=== PATIENT | male | born 1985 | race Caucasian/White ===

== ENCOUNTER 2016-08-21 03:22 | Inpatient (IN) | payer OTHER ==
[2016-08-21] MEDS ORDERED: ASPIRIN 81 MG CHEWABLE TABLETS PO ONE (03:45)
--- NOTE | 2016-08-21 03:45 | PDOC ---
History of Present Illness - General History Source: Patient Exam Limitations: No Limitations - History of Present Illness Initial Comments: 08/21/16 03:53 The patient is a 31 year old male with significant past medical history of hypertension, hyperlipidemia, myocarditis, and asthma who presents to the ED with 3 days of midsternal chest pain. Patient describes his pain as a stabbing sensation that radiates to the back with associated SOB. No exacerbating or alleviating factors. Denies diaphoresis, lightheadedness, jaw pain, shoulder pain, arm pain, nausea, or vomiting. Pt is currently on no medications. Denies any recent travels or sick contacts. The patient denies fever, chills, cough, abdominal pain, and diarrhea. Allergies: NKDA Social History: Denies alcohol, tobacco, or drug use. Family History: strokes and heart disease Past Surgical History: cardiac catheterization PCP: None reported <Federica Eckert - Last Filed: 08/21/16 06:23> - General History Source: Patient <Robi Sharp - Last Filed: 08/21/16 19:25> - General Stated Complaint: CHEST PAIN Time Seen by Provider: 08/21/16 03:41 Past History <Federica Eckert - Last Filed: 08/21/16 06:23> - Past Medical History Asthma: Yes Cardiac Disorders: Yes (Myocarditis) HTN: Yes Hypercholesterolemia: Yes - Surgical History Cardiac Surgery: Yes (Catheterization) - Immunization History Immunization Up to Date: No - Psycho/Social/Smoking Cessation Hx Anxiety: No Suicidal Ideation: No Smoking Status: No Smoking History: Never smoked Number of Cigarettes Smoked Daily: 0 Hx Alcohol Use: No Drug/Substance Use Hx: No <Robi Sharp - Last Filed: 08/21/16 19:25> - Past Medical History Allergies/Adverse Reactions: Allergies Allergy/AdvReac Type Severity Reaction Status Date / Time No Known Allergies Allergy Verified 05/12/12 12:07 Home Medications: Ambulatory Orders Albuterol Sulfate Inhaler - [Ventolin HFA Inhaler -] 1 puff IN PRN PRN 08/21/16 Review of Systems - Review of Systems Able to Perform ROS?: Yes Comments:: 08/21/16 03:53 CONSTITUTIONAL: Absent: fever, no chills, no fatigue EYES: Absent: visual changes ENT: Absent: ear pain, no sore throat CARDIOVASCULAR: +midsternal chest pain radiating to the back Absent: no palpitations RESPIRATORY: +SOB Absent: cough GI: Absent: abdominal pain, no nausea, no vomiting, no constipation, no diarrhea GENITOURINARY: Absent: dysuria, no frequency, no hematuria MUSKULOSKELETAL: Absent: no arthralgia, no myalgia SKIN: Absent: rash NEURO: Absent: headache <Federica Eckert - Last Filed: 08/21/16 06:23> *Physical Exam - Physical Exam Comments: 08/21/16 03:53 GENERAL: Well-appearing, well-nourished. Mild distress. HEENT: Normocephalic, atraumatic. PERRL, EOM intact. CARDIOVASCULAR: Normal S1, S2. Regular rate and rhythm. PULMONARY: No respiratory distress. Clear to auscultation bilaterally. ABDOMEN: Morbidly obese. Soft, non-distended, non-tender. EXTREMITIES: Normal ROM in all four extremities. No gross deformities. SKIN: Warm, dry. No rash NEUROLOGICAL: No focal neurological deficits. <Federica Eckert - Last Filed: 08/21/16 06:23> Heart Score/ECG Review - ECG Impressions Comment:: 08/21/16 03:54 NSR with sinus arrhythmia @98bpm Normal ECG <Federica Eckert - Last Filed: 08/21/16 06:23> - History History: Moderately suspicious - Electrocardiogram EKG: Normal - Age Age: </= 45 - Risk Factors Risk Factors Heart Score: Yes Hx Hypercholesterolemia, Yes Hx Hypertension, Yes Positive family hx of cardiac disease, Yes Hx Obesity Based on the list above the patient has:: 1-2 risk factors - Troponin Troponin: </= normal limit - Score Heart Score - Total: 2 <Robi Sharp - Last Filed: 08/21/16 19:25> ED Treatment Course - LABORATORY CBC & Chemistry Diagram: 08/21/16 04:20 08/21/16 04:20 - RADIOLOGY Radiograph Interpretation: 08/21/16 06:24 EXAM: CTA CHEST Reviewed by Imaging recreational programs director: No pulmonary embolism. No aortic dissection or aneurysm. No pneumonia or pleural effusions. Hepatosplenomegaly. Elevation right hemidiaphragm. 2.7 cm right adrenal adenoma. - Medications Given in the ED: ED Medications Discontinued Medications Generic Name Dose Route Start Last Admin Trade Name Frances PRN Reason Stop Dose Admin Aspirin 324 mg 08/21/16 03:45 08/21/16 03:50 Asa - PO 08/21/16 03:46 324 mg ONCE ONE Administration <Federica Eckert - Last Filed: 08/21/16 06:23> - LABORATORY CBC & Chemistry Diagram: 08/21/16 09:50 08/21/16 04:20 <Robi Sharp - Last Filed: 08/21/16 19:25> Medical Decision Making - Medical Decision Making 08/21/16 05:09 Dr. Sharp: The scribe's documentation has been prepared under my direction and personally reviewed by me in its entirery. I confirm that the note above accurately reflects all work, treatment, procedures, and medical decision making performed by me. Pt with slightly elevated troponin. H/o myocarditis. Pt will be admitted to telemetry 08/21/16 19:25 CTA of chest negeative for PE. <Robi Sharp - Last Filed: 08/21/16 19:25> *DC/Admit/Observation/Transfer - Attestations Scribe Attestion: 08/21/16 03:54 Documentation prepared by Federica Eckert, acting as medical transcriber for Robi Sharp MD <Federica Eckert - Last Filed: 08/21/16 06:23> - Discharge Dispostion Admit: Yes <Robi Sharp - Last Filed: 08/21/16 19:25> Diagnosis at time of Disposition: Chest pain Qualifiers: Chest pain type: precordial pain Qualified Code(s): R07.2 - Precordial pain Myocarditis Qualifiers: Myocarditis type: other Chronicity: unspecified Qualified Code(s): I51.4 - Myocarditis, unspecified - Referrals
[2016-08-21] MEDS ORDERED: ASPIRIN 81 MG CHEWABLE TABLETS ONE (03:52)
[2016-08-21 04:29] LABS: BASOPHIL 0.5 % (0-2.0); EOSINOPHIL 6.5 % (0-4.5); MCHC 32.8 g/dl (32.0-35.9); MEAN CELL VOLUME 76.3 fl (80-96); MEAN PLT VOLUME 9.2 fl (7.5-11.1); NEUTROPHILS 70.1 % (42.8-82.8); PLATELET COUNT 244 K/MM3 (134-434); RDW 14.3 % (11.9-15.9); WHITE BLOOD COUNT 12.4 K/mm3 (4.0-10.0)
[2016-08-21 04:55] LABS: ALBUMIN 3.6 g/dl (3.4-5.0); ANION GAP 9 (8-16); BILIRUBIN,TOTAL 0.4 mg/dL (0.2-1.0); CALCIUM 8.3 mg/dL (8.5-10.1); CO2 27 mmol/L (21-32); CREATININE 0.8 mg/dL (0.7-1.3); GLUCOSE,RANDOM 94 mg/dL (74-106); MAGNESIUM 1.9 mg/dL (1.8-2.4); SGOT/AST 26 U/L (15-37); SGPT/ALT 35 U/L (12-78); TOT PROT 7.3 g/dl (6.4-8.2)
[2016-08-21 04:58] LABS: ALK PHOS 62 U/L (45-117); TROPONIN I 0.15 ng/ml (0.00-0.05)
[2016-08-21] MEDS ORDERED: morphine CARPU-JECT 2 MG/1 ML DISP.SYRIN IVPUSH ONE (05:06)
[2016-08-21] MEDS ORDERED: ONDANSETRON 4 MG/2 ML VIAL IVPUSH STA (05:06)
--- NOTE | 2016-08-21 05:13 | HP ---
CHIEF COMPLAINT:Chest Pain PCP: HISTORY OF PRESENT ILLNESS:31 M with pmhx of HTN, HLD, and myocarditis who presents with midsternal Chest pain radiating to his back. Also, with associated shortness of breath. States Chest pain started yesterday and was intermittent in nature. It would last a few minutes and dissapate. Described as "stabbing," with radiation to the back. No N/V/D. No fevers or chills. Does states chest pain was worsened with deep inspiration. Pt. had chest pain in 2010, for which he underwent a cardiac catheterization, which was negative. He was diagnosed with Myocarditis at that time and notes his symptoms are different as far as pain is concerned this time. ER course was notable for: (1) Mildly elevated Troponin 0.15- Lovenox, ASA given (2) No acute EKG changes Recent Travel:No PAST MEDICAL HISTORY: As above PAST SURGICAL HISTORY: Cath-2010 Social History: Smoking:No Alcohol:No Drugs:NO Family History: Father- CVA- Age 50, AVReplacement Allergies No Known Allergies Allergy (Verified 05/12/12 12:07) HOME MEDICATIONS: Home Medications Medication Instructions Recorded Albuterol Sulfate Inhaler - 1 puff IN PRN PRN 08/21/16 [Ventolin HFA Inhaler -] REVIEW OF SYSTEMS CONSTITUTIONAL: Absent: fever, chills, diaphoresis, generalized weakness, malaise, loss of appetite, weight change HEENT: Absent: rhinorrhea, nasal congestion, throat pain, throat swelling, difficulty swallowing, mouth swelling, ear pain, eye pain, visual changes CARDIOVASCULAR: + chest pain, syncope, NO palpitations, irregular heart rate, lightheadedness, peripheral edema RESPIRATORY: Absent: cough, + shortness of breath, NO dyspnea with exertion, orthopnea, wheezing, stridor, hemoptysis GASTROINTESTINAL: Absent: abdominal pain, abdominal distension, nausea, vomiting, diarrhea, constipation, melena, hematochezia GENITOURINARY: Absent: dysuria, frequency, urgency, hesitancy, hematuria, flank pain, genital pain MUSCULOSKELETAL: Absent: myalgia, arthralgia, joint swelling, back pain, neck pain SKIN: Absent: rash, itching, pallor HEMATOLOGIC/IMMUNOLOGIC: Absent: easy bleeding, easy bruising, lymphadenopathy, frequent infections ENDOCRINE: Absent: unexplained weight gain, unexplained weight loss, heat intolerance, cold intolerance NEUROLOGIC: Absent: headache, focal weakness or paresthesias, dizziness, unsteady gait, seizure, mental status changes, bladder or bowel incontinence PSYCHIATRIC: Absent: anxiety, depression, suicidal or homicidal ideation, hallucinations. PHYSICAL EXAMINATION Vital Signs - 24 hr 08/21/16 04:00 Pulse Rate [ 104 H Apical] Respiratory 13 Rate Blood Pressure 129/91 [Left Arm] O2 Sat by Pulse 98 Oximetry (%) GENERAL: Awake, alert, and fully oriented, in no acute distress. HEAD: Normal with no signs of trauma. EYES: Pupils equal, round and reactive to light, extraocular movements intact, sclera anicteric, conjunctiva clear. No lid lag. EARS, NOSE, THROAT: Ears normal, nares patent, oropharynx clear without exudates. Moist mucous membranes. NECK: Normal range of motion, supple without lymphadenopathy, JVD, or masses. LUNGS: Breath sounds equal, clear to auscultation bilaterally. No wheezes, and no crackles. No accessory muscle use. HEART: Regular rate and rhythm, normal S1 and S2 without murmur, rub or gallop. ABDOMEN: Soft, nontender, not distended, normoactive bowel sounds, no guarding, no rebound, no masses. No hepatomegaly or splenomegaly. MUSCULOSKELETAL: Normal range of motion at all joints. No bony deformities or tenderness. No CVA tenderness. UPPER EXTREMITIES: 2+ pulses, warm, well-perfused. No cyanosis. No clubbing. No peripheral edema. LOWER EXTREMITIES: 2+ pulses, warm, well-perfused. No calf tenderness. No peripheral edema. NEUROLOGICAL: Cranial nerves II-XII intact. Normal speech. Gait, not assessed. PSYCHIATRIC: Cooperative. Good eye contact. Appropriate mood and affect. SKIN: Warm, dry, normal turgor, no rashes or lesions noted, normal capillary refill. Laboratory Results - last 24 hr 08/21/16 08/21/16 08/21/16 04:20 04:20 04:20 WBC 12.4 H RBC 5.87 H Hgb 14.7 Hct 44.8 MCV 76.3 L MCHC 32.8 RDW 14.3 Plt Count 244 D MPV 9.2 Neutrophils % 70.1 Lymphocytes % 13.3 D Monocytes % 9.6 Eosinophils % 6.5 H D Basophils % 0.5 Sodium 141 Potassium 4.2 Chloride 105 Carbon Dioxide 27 Anion Gap 9 BUN 12 Creatinine 0.8 Creat Clearance w eGFR > 60 Random Glucose 94 Calcium 8.3 L Magnesium 1.9 Total Bilirubin 0.4 AST 26 ALT 35 D Alkaline Phosphatase 62 Creatine Kinase 389 H D CK-MB (CK-2) Rel Index Cancelled Troponin I 0.15 H D Total Protein 7.3 Albumin 3.6 EKG- NSR- No acute ST-T changes CXR- Pending HEART SCORE 3 ASSESSMENT/PLAN: 31 M with pmhx of HTN, HLD, Myocarditis who presents with chest pain 1.) Chest Pain - DDx: Myocarditis, less likely NSTEMI - HEART 3 (Hx + 2 RF) - Echo - CTA- Pending - Trend Trop/EKG - Lovenox 1mg/kg- given in ED, await next trop, if decreased can stop - ASA - Consider BB - Morphine/Nitro prn CP 2.) HTN - Controlled not on home meds 3.) HLD - Not on any meds - Chk. Lipid Panel - Diet controlled 4.) Dvt Ppx - Scds Place in OBS Tele Visit type - Emergency Visit Emergency Visit: Yes ED Registration Date: 08/21/16 Care time: The patient presented to the Emergency Department on the above date and was hospitalized for further evaluation of their emergent condition. - New Patient This patient is new to me today: Yes Date on this admission: 08/22/16 - Critical Care Critical Care patient: No
[2016-08-21] MEDS ORDERED: ONDANSETRON 4 MG/2 ML VIAL ONE (05:15)
[2016-08-21] MEDS ORDERED: morphine CARPU-JECT 4 MG/1 ML DISP.SYRIN ONE (05:15)
[2016-08-21] MEDS ORDERED: morphine CARPU-JECT 2 MG/1 ML DISP.SYRIN ONE (05:15)
[2016-08-21 05:16] LABS: INR 1.19 (0.82-1.09); PROTHROMBIN TIME (PATIENT) 13.1 SEC (9.98-11.88)
[2016-08-21] MEDS ORDERED: ENOXAPARIN NA (PORCINE) 120 MG/0.8 ML DISP.SYRIN SQ SCH (05:30)
[2016-08-21 05:32] VITALS: BMI 38.7
[2016-08-21] MEDS ORDERED: ENOXAPARIN NA (PORCINE) 100 MG/1 ML DISP.SYRIN SQ ONE (05:45)
[2016-08-21] MEDS ORDERED: ALBUTEROL SO4 6.7 GM HFA INHALER IH PRN (05:47)
[2016-08-21] MEDS ORDERED: ENOXAPARIN NA (PORCINE) 30 MG/0.3 ML DISP.SYRIN SQ ONE (06:15)
[2016-08-21] MEDS ORDERED: METOPROLOL TARTRATE 25 MG TABLET (FP) PO ONE (06:42)
[2016-08-21] MEDS ORDERED: METOPROLOL TARTRATE 25 MG TABLET (FP) ONE (06:56)
[2016-08-21 08:49] LABS: CHOLESTEROL 148 mg/dL (50-200); LDL CHOLESTEROL (ONLY SJRH) 103 mg/dL (5-100)
[2016-08-21 10:23] LABS: BASOPHIL 0.3 % (0-2.0); MCH 24.7 pg (25.7-33.7); MCHC 32.4 g/dl (32.0-35.9); MEAN CELL VOLUME 76.2 fl (80-96); MEAN PLT VOLUME 9.7 fl (7.5-11.1); NEUTROPHILS 77.5 % (42.8-82.8); PLATELET COUNT 244 K/MM3 (134-434); RDW 14.3 % (11.9-15.9); WHITE BLOOD COUNT 12.1 K/mm3 (4.0-10.0)
[2016-08-21] MEDS ORDERED: NITROGLYCERIN SUBLINGUAL 1/150 0.4 MG TAB SL PRN (10:49)
--- NOTE | 2016-08-21 11:52 | EKG ---
Test Reason : Blood Pressure : / mmHG Vent. Rate : 098 BPM Atrial Rate : 098 BPM P-R Int : 142 ms QRS Dur : 086 ms QT Int : 342 ms P-R-T Axes : 047 020 050 degrees QTc Int : 436 ms NORMAL SINUS RHYTHM WITH SINUS ARRHYTHMIA NORMAL ECG WHEN COMPARED WITH ECG OF 01-AUG-2011 16:33, NO SIGNIFICANT CHANGE WAS FOUND Confirmed by RUSTY TABOR MD ([id number]) on 08/21/2016 11:52:14 AM Referred By: Confirmed By:RUSTY TABOR MD
[2016-08-21] MEDS: morphine CARPU-JECT 2 MG/1 ML DISP.SYRIN IVPUSH PRN ×3 (14:21→22:05)
--- NOTE | 2016-08-21 14:48 | PN ---
Teaching Attending Note Name of Resident: Smiht Lester ATTENDING PHYSICIAN STATEMENT I saw and evaluated the patient. I reviewed the resident's note and discussed the case with the resident. I agree with the resident's findings and plan as documented. SUBJECTIVE:c/o stabbing CP that woke him up from sleep yesterday L sided that "pierces right through me" with some radiation to the chin. lasted several minutes and then self resolved. has had 4 episodes of this last one 20 minutes earlier that presented in same quality as earlier. self resolved after 5 minutes priot to NTG that was given. pain comes on at rest and is worse on inspiration and leaning forward. pt states he was shoveling snow last week but did not experience any chest pain or SOB during. no recent URI symptoms no recent travel. denies tobacco or excessive ETOH use. family hx only significant for CVA. denies blurred vision, fever, chills, cough OBJECTIVE: Last Vital Signs Temp Pulse Resp BP Pulse Ox 99.1 F 94 H 17 100/61 96 08/21/16 07:35 08/21/16 11:46 08/21/16 11:46 08/21/16 11:46 08/21/16 11:46 General NAD CV S1 S2 RRR no murmur/rub/gallop distant heart sounds no chest wall tenderness lungs CTA B/L no wheezing/rales/rhonchi abdomen soft NT/ND no rebound/guarding obese ASSESSMENT AND PLAN: 31yo M with PMH morbid obesity, HTN, dyslipidemia and myocarditis presented to the ER and was admitted for further evaluation of their emergent condition 1. Pleuritic CP- no events on tele monitor. EKG with no changes. spoke with Dr Treviño's PA(private sports umpire [phone]). troponin at 0.15 x2 readings. awaiting 3rd troponin. Echo done with no WMA. received lovenox, morphine and beta nikolas. given presentation seems more pleuritic and believe it can less likely be ACS related. also given stress of snow shoveling last week which results in no CP or SOB. cardiac cath in 2010 showed 30% LAD and echo with EF 25 % which repeat echo in feb 2015 with normalized EF. will hold acs treatment at this time and continue to trend tropinin and if CP re-occurs. cardiac monitoring to monitor for arrhythmia. check lipase to r/o pancreatitis 2. HTN- not on home medications. currently controlled. will monitor for now 3. Morbid obesity- lifestyle modifications. bariatric referral as outpatient 4. DVT ppx- EAM
--- NOTE | 2016-08-21 14:48 | EKG ---
Test Reason : Blood Pressure : / mmHG Vent. Rate : 090 BPM Atrial Rate : 090 BPM P-R Int : 138 ms QRS Dur : 082 ms QT Int : 334 ms P-R-T Axes : 050 007 037 degrees QTc Int : 408 ms NORMAL SINUS RHYTHM NORMAL ECG WHEN COMPARED WITH ECG OF 21-AUG-2016 03:30, NO SIGNIFICANT CHANGE WAS FOUND Confirmed by RUSTY TABOR MD ([id number]) on 08/21/2016 2:47:59 PM Referred By: Confirmed By:RUSTY TABOR MD
--- NOTE | 2016-08-21 15:55 | PN ---
Addendum entered and electronically signed by Smith Lester RES 08/21/16 18: 47: low grade fever 100.4 no source of infection, negative CXR, negative CTA chest No cough, no hemoptysis, no rinnohrea no hematuria, dysuria no n/v, no diarrhea, no abdominal pain Plan PRN Tylenol If fever > 101, will do sepsis work up Original Note: Physical Exam: SUBJECTIVE: Patient seen and examined Pt is awake, alert and oriented Pt has another episode of chest pain with shortness of breath this morning The chest was sharp radiating to the back, chest pain increase with deep breath , no change with position No fever, no chills no recent infection, no cough no dyspnea on exertion, no orthopnea OBJECTIVE: Vital Signs Period Temp Pulse Resp BP Sys/Walker Pulse Ox Last 24 Hr 98.5 F-99.1 F 86-104 13-17 100-146/61-97 96-98 GENERAL: The patient is awake, alert, and fully oriented, in no acute distress. HEAD: Normal with no signs of trauma. ENT: Ears normal, nares patent, oropharynx clear without exudates, moist mucous membranes. NECK: Trachea midline, full range of motion, supple. LUNGS: Breath sounds equal, clear to auscultation bilaterally, no wheezes, no crackles, no accessory muscle use. HEART: Regular rate and rhythm, S1, S2 without murmur, rub or gallop. ABDOMEN: Soft, obese, nontender, nondistended, normoactive bowel sounds, no guarding, no rebound, no hepatosplenomegaly, no masses. EXTREMITIES: 2+ pulses, warm, well-perfused, no edema. NEUROLOGICAL: Normal speech, gait not observed. PSYCH: Normal mood, normal affect. SKIN: Warm, dry, normal turgor, no rashes or lesions noted Laboratory Results - last 24 hr 08/21/16 08/21/16 08/21/16 06:40 09:50 09:50 WBC 12.1 H RBC 5.99 H Hgb 14.8 Hct 45.7 MCV 76.2 L MCHC 32.4 RDW 14.3 Plt Count 244 MPV 9.7 Neutrophils % 77.5 Lymphocytes % 10.7 Monocytes % 6.5 Eosinophils % 5.0 H Basophils % 0.3 PTT (Actin FS) 31.7 Troponin I 0.15 H Active Medications Generic Name Dose Route Start Last Admin Trade Name Frances PRN Reason Stop Dose Admin Albuterol Sulfate 1 puff 08/21/16 05:47 Ventolin Hfa Inhaler - IH Q4H PRN SHORTNESS OF BREATH Morphine Sulfate 2 mg 08/21/16 10:49 08/21/16 14:21 Morphine Injection - IVPUSH 2 mg Q3H PRN Administration PAIN Nitroglycerin 0.4 mg 08/21/16 10:49 08/21/16 11:11 Nitrostat - SL 0.4 mg Q5M PRN Administration FOR CHEST PAIN CBC, BMP 08/21/16 09:50 08/21/16 04:20 Laboratory Tests 08/21/16 08/21/16 08/21/16 04:20 04:20 09:50 INR 1.19 H Troponin I 0.15 H D 0.15 H Total LDL Cholesterol 103 H HDL Cholesterol 32 L Lipase 08/21/16 08/21/16 15:30 16:00 INR Troponin I Pending Total LDL Cholesterol HDL Cholesterol Lipase Pending ASSESSMENT/PLAN: 31 year old male with pmh of HTN, HPLD, Obesity, Myocarditis with cardiac cath in 2010 presents with chest pain. Chest Pain likely myocarditis r/o ACS Pt describes pain as pleuretic, increase with deep breath, sharp Pt showed snow for 2 days in recent snow storm without chest pain/sob Continue to trend troponins so far, 0.15 x2 Serial ekg, so far SR with no ST/Twaves abnormalities, no block Echo showed normal EF, no wall motion abnormalities Monitor on telemetry for chest pain, sob, ekg abnormalities Monitor vitals received ASA, lovenox, betablocker in emergency department Consider resume ASA, Lovenox and betablocker if increasing with troponins Nitro Prn Morphine SL prn Avoid NSAIDS, Alcohol, Exercise Will need outpatient cardiology follow up with Dr Treviño Class 2 Obesity Pt with BMI 39 Weight loss counseling nutrition consult HTN controlled on off meds right now HPLD Lipid Profile with LDL 103 and HDL 32 Will need to exercise when recover from current condition with the ok from the record librarian Consider starting statins FEN Fluid: none Electrolytes: no abnormalities Nutrition: cardiac diet DVT prophylaxis: early ambulation, received Lovenox SQ in ED Disposition: keep in telemetry to trend troponins and watch for arrythmias Visit type - Emergency Visit Emergency Visit: Yes ED Registration Date: 08/21/16 Care time: The patient presented to the Emergency Department on the above date and was hospitalized for further evaluation of their emergent condition. - New Patient This patient is new to me today: Yes Date on this admission: 08/21/16 - Critical Care Critical Care patient: No - Discharge Referral Referred to [facility] Med P.C.: No
[2016-08-21 17:43] LABS: TROPONIN I 0.15 ng/ml (0.00-0.05)
[2016-08-21 22:35] LABS: TROPONIN I 0.17 ng/ml (0.00-0.05)
[2016-08-22] MEDS: morphine CARPU-JECT 2 MG/1 ML DISP.SYRIN IVPUSH PRN ×2 (02:00→07:01)
[2016-08-22 07:37] LABS: INR 1.42 (0.82-1.09); PROTHROMBIN TIME (PATIENT) 15.7 SEC (9.98-11.88)
--- NOTE | 2016-08-22 08:32 | PN ---
Physical Exam: SUBJECTIVE: Patient seen and examined complaint of feeling hot t max 100.7 overnigth no fever this 2 episode of chest pain overnight on the monitor had episode of Sinus tachycardia HR in 120's no cough, no rhinorhea no dysuria, hematuria no diarrhea, no abdominal pain, no n/v OBJECTIVE: Vital Signs Period Temp Pulse Resp BP Sys/Walker Pulse Ox Last 24 Hr 98.0 F-100.7 F 94-131 17-20 100-139/61-75 96-97 GENERAL: The patient is awake, alert, and fully oriented, in no acute distress. ENT: Ears normal, nares patent, oropharynx clear without exudates, moist mucous membranes. NECK: Trachea midline, full range of motion, supple. LUNGS: Breath sounds equal, clear to auscultation bilaterally, no wheezes, no crackles, no accessory muscle use. HEART: Regular rate and rhythm, S1, S2 without murmur, rub or gallop. ABDOMEN: Soft, nontender, nondistended, normoactive bowel sounds, no guarding, no rebound, no hepatosplenomegaly, no masses. EXTREMITIES: 2+ pulses, warm, well-perfused, no edema. NEUROLOGICAL: Normal speech, gait not observed. PSYCH: Normal mood, normal affect. SKIN: Warm, dry, normal turgor, no rashes or lesions noted Laboratory Results - last 24 hr 08/21/16 08/21/16 08/21/16 09:50 09:50 15:30 WBC 12.1 H RBC 5.99 H Hgb 14.8 Hct 45.7 MCV 76.2 L MCHC 32.4 RDW 14.3 Plt Count 244 MPV 9.7 Neutrophils % 77.5 Lymphocytes % 10.7 Monocytes % 6.5 Eosinophils % 5.0 H Basophils % 0.3 INR Creatine Kinase 208 D CK-MB (CK-2) Rel Index Troponin I 0.15 H 0.15 H Lipase 08/21/16 08/21/16 08/21/16 15:30 16:00 16:00 WBC RBC Hgb Hct MCV MCHC RDW Plt Count MPV Neutrophils % Lymphocytes % Monocytes % Eosinophils % Basophils % INR Creatine Kinase CK-MB (CK-2) Rel Index Cancelled Troponin I Cancelled Lipase 129 08/21/16 08/21/16 08/22/16 21:30 21:30 05:35 WBC RBC Hgb Hct MCV MCHC RDW Plt Count MPV Neutrophils % Lymphocytes % Monocytes % Eosinophils % Basophils % INR 1.42 H Creatine Kinase 199 CK-MB (CK-2) Rel Index Cancelled Troponin I 0.17 H Lipase Active Medications Generic Name Dose Route Start Last Admin Trade Name Freq PRN Reason Stop Dose Admin Acetaminophen 1,000 mg 08/21/16 18:41 Tylenol - PO Q6H PRN FEVER OR PAIN Albuterol Sulfate 1 puff 08/21/16 05:47 Ventolin Hfa Inhaler - IH Q4H PRN SHORTNESS OF BREATH Morphine Sulfate 2 mg 08/21/16 10:49 08/22/16 07:01 Morphine Injection - IVPUSH 2 mg Q3H PRN Administration PAIN Nitroglycerin 0.4 mg 08/21/16 10:49 08/21/16 11:11 Nitrostat - SL 0.4 mg Q5M PRN Administration FOR CHEST PAIN CBC, BMP 08/22/16 06:05 08/21/16 04:20 Microbiology 08/22/16 10:25 Nasopharyngeal Aspirate Influenza Types A,B Antigen (BRYAN) - Final 08/22/16 10:25 Nasopharyngeal Aspirate - Final Laboratory Tests 08/21/16 08/21/16 08/21/16 09:50 15:30 16:00 INR Troponin I 0.15 H 0.15 H Lipase 129 08/21/16 08/22/16 08/22/16 21:30 05:35 06:05 INR 1.42 H Troponin I 0.17 H 0.22 H D Lipase ASSESSMENT/PLAN: 31 year old male with pmh of HTN, HPLD, Obesity, Myocarditis with cardiac cath in 2010 presents with chest pain. Chest Pain likely myocarditis unlikely ACS, pericarditis Pt describes pain as pleuretic, increase with deep breath, sharp, worse when laying flat Pt showed snow for 2 days in recent snow storm without chest pain/sob Continue to trend troponins so far, 0.15 x3, 0.17, 0.22 Serial ekg, so far SR with no ST/Twaves abnormalities, no block Echo showed normal EF, no wall motion abnormalities Monitor on telemetry for chest pain, sob, ekg abnormalities Monitor vitals received ASA, lovenox, betablocker in emergency department Consider resume ASA, Lovenox and betablocker if increasing with troponins Nitro Prn Morphine SL prn Consult cardiology Dr Luna Per cardio: it is ok give NSAIDS since he is not in CHF and Severe Arrhythmia Pt is started on Ibuprofen and Colchicine By cardiology Avoid Alcohol, Exercise Will need outpatient cardiology follow up with Dr Treviño Low grade Fever r/o Sepsis Low grade fever since yesterday No cough, no sputum, no rinnorhea, no diarrhea, no abdominal pain, no hematuria , no dysuria Blood culture urine culture Influenza Class 2 Obesity Pt with BMI 39 Weight loss counseling nutrition consult HTN controlled on off meds right now Will continue to monitor HPLD Lipid Profile with LDL 103 and HDL 32 Will need to exercise when recover from current condition with the ok from the sprinkler fitter helper Consider starting statins FEN Fluid: none Electrolytes: no abnormalities Nutrition: cardiac diet DVT prophylaxis: early ambulation, received Lovenox SQ in ED Disposition: keep in telemetry to trend troponins and watch for arrythmias Visit type - Emergency Visit Emergency Visit: Yes ED Registration Date: 08/21/16 Care time: The patient presented to the Emergency Department on the above date and was hospitalized for further evaluation of their emergent condition. - New Patient This patient is new to me today: No - Critical Care Critical Care patient: No - Discharge Referral Referred to [facility] Med P.C.: No
--- NOTE | 2016-08-22 09:58 | PN ---
Progress Note (short form) - Note Progress Note: Consult Dictated Fever and symptoms c/w pericarditis vs pleuritis Normal LV function REC: NSAIDS Blood cultures and Influenza swab Consider ID evaluation Continue tele as patient with h/o of myocarditis 2010. Suspect mildly elevated TnI due to infection and some component of pericardial and possibly myocardial inflammatory process.
[2016-08-22] MEDS ORDERED: ASPIRIN 325 MG TABLET PO SCH (10:00)
[2016-08-22 10:06] LABS: MCH 24.8 pg (25.7-33.7); MCHC 32.1 g/dl (32.0-35.9); MEAN CELL VOLUME 77.4 fl (80-96); MEAN PLT VOLUME 9.5 fl (7.5-11.1); PLATELET COUNT 223 K/MM3 (134-434); RDW 14.1 % (11.9-15.9); WHITE BLOOD COUNT 11.3 K/mm3 (4.0-10.0)
[2016-08-22] MEDS: ACETAMINOPHEN 500 MG TABLET (FP) PO PRN ×2 (10:07→17:23)
[2016-08-22 10:11] LABS: TROPONIN I 0.22 ng/ml (0.00-0.05)
[2016-08-22] MEDS: COLCHICINE 0.6 MG TABLET (FP) PO SCH (10:14)
[2016-08-22] MEDS: PANTOPRAZOLE 20 MG TABLET (FP) PO SCH (10:14)
[2016-08-22] MEDS: IBUPROFEN 400 MG TABLET (FP) PO PRN ×3 (11:00→23:47)
--- NOTE | 2016-08-22 11:14 | CONS ---
DATE OF CONSULTATION: 08/22/2016 CONSULTATION REQUESTED BY: Suzanne Carreon MD REASON FOR CONSULTATION: Chest pain. The patient is a 31-year-old male with previous history of asthma and myocarditis in 2010, at which time he was diagnosed with severe LV dysfunction. With medical therapy, his ejection fraction normalized. He is followed by Dr. Treviño at [facility], with his last appointment being 1 year ago. He was ultimately taken off of medications due to normalization of LVEF. On Saturday, he began experiencing episodes of sharp substernal chest pain radiating to the back. In total, he had 3 episodes between Saturday and Saturday, worse lying down, better when sitting up. He was found to be febrile here. He had a CT scan of the chest that was negative for dissection or pulmonary embolism. He was noted to have mildly elevated troponin levels below 0.5 but above 0, and he was admitted to telemetry. He denies airline travel. He denies prolonged periods of inactivity. He states that at 1-2 weeks ago he had a sore throat and some mild upper respiratory-type infections. He denies cough. He has been febrile the last 24 hours, with temperatures of around 100.7. PAST MEDICAL HISTORY: Asthma, myocarditis in 2010, history of cholecystectomy. ALLERGIES: None. MEDICATIONS: None. FAMILY HISTORY: He denies early CAD or sudden cardiac . SOCIAL HISTORY: No alcohol, tobacco, or illicit drugs. ELECTROCARDIOGRAM: Sinus tachycardia 104 beats per minute with mild ST elevation in I, II, III, aVF, V2-V6, less than 1 mm, with a suggestion of P-R depression in I, II, aVL. PHYSICAL EXAMINATION: Vital Signs: Temperature 99.7, pulse 101, blood pressure 115/75. O2 saturation 97 on room air. HEENT: Anicteric. Heart: S1, S2 regular. No murmurs. Chest: Clear. Abdomen: Soft, nontender. Extremities: No edema. ECHOCARDIOGRAM: Normal LV function with no pericardial effusion noted. Mild TR. His chest CTA showed no dissection, no pulmonary embolism. There were some possible atelectatic changes in the right lower lobe with a trace amount of pleural fluid there. LABORATORY: His white count is elevated at 12.1, hematocrit 45.7, platelets normal. Slight eosinophilia, 5%. INR 1.42. Sodium was 141. Potassium was 4.2. BUN was 12. Creatinine was 0.8. CK initially 389, now down to 199. Troponin 0.15, 0.15, 0.17. LFTs were basically normal. Albumin 3.6. Cholesterol 148. IMPRESSION: A 31-year-old male with previous history of myocarditis in 2010, now presents with sharp substernal chest pain, positional in nature, with low-grade fever and symptoms consistent with pericarditis. Suspect the slightly elevated cardiac troponin level is due to pericardial, possibly some myocardial inflammation. RECOMMENDATIONS: 1. Continue telemetry to rule out arrhythmias. 2. Echo has shown normal LV function with no significant effusion. 3. Begin NSAIDs, ibuprofen 400 mg q.6 hours p.r.n. for pain, with colchicine 0.6 mg daily. 4. Consider ID evaluation. 5. Blood cultures and influenza swabs. Thank you for the consultation. CRUZ SAVAGE M.D. [id number]
[2016-08-22 12:38] LABS: C-REACTIVE PROTEIN 13.1 MG/DL (0.00-0.3)
--- NOTE | 2016-08-22 12:43 | EKG ---
Test Reason : Blood Pressure : / mmHG Vent. Rate : 104 BPM Atrial Rate : 104 BPM P-R Int : 138 ms QRS Dur : 088 ms QT Int : 336 ms P-R-T Axes : 041 -04 043 degrees QTc Int : 441 ms SINUS TACHYCARDIA ACUTE PERICARDITIS ABNORMAL ECG WHEN COMPARED WITH ECG OF 21-AUG-2016 18:33, NO SIGNIFICANT CHANGE WAS FOUND Confirmed by ANNE YEE MD ([id number]) on 08/22/2016 12:43:04 PM Referred By: Lisa EAGLE Confirmed By:ANNE YEE MD
--- NOTE | 2016-08-22 12:43 | EKG ---
Test Reason : Blood Pressure : / mmHG Vent. Rate : 099 BPM Atrial Rate : 099 BPM P-R Int : 138 ms QRS Dur : 086 ms QT Int : 322 ms P-R-T Axes : 037 -01 040 degrees QTc Int : 413 ms NORMAL SINUS RHYTHM NORMAL ECG WHEN COMPARED WITH ECG OF 21-AUG-2016 12:10, NO SIGNIFICANT CHANGE WAS FOUND Confirmed by ANNE YEE MD ([id number]) on 08/22/2016 12:43:48 PM Referred By: DERIK Confirmed By:ANNE YEE MD
--- NOTE | 2016-08-22 13:35 | PN ---
Teaching Attending Note Name of Resident: Smith Lester ATTENDING PHYSICIAN STATEMENT I saw and evaluated the patient. I reviewed the resident's note and discussed the case with the resident. I agree with the resident's findings and plan as documented. SUBJECTIVE:continues to have intermittent CP, relieved with morphine. states its worse when laying down. denies SOB, fever, chills, N/V/C/D OBJECTIVE: Last Vital Signs Temp Pulse Resp BP Pulse Ox 100.8 F H 105 H 20 127/76 93 L 08/22/16 10:00 08/22/16 10:00 08/22/16 10:00 08/22/16 10:00 08/22/16 10:00 General NAD CV S1 S2 RRR no murmur/rub/gallop distant heart sounds no chest wall tenderness lungs CTA B/L no wheezing/rales/rhonchi ASSESSMENT AND PLAN: 31yo M with PMH morbid obesity, HTN, dyslipidemia and myocarditis presented to the ER and was admitted for further evaluation of their emergent condition 1. Pleuritic CP-likely myopericarditis. had intermittent low grade fevers through out the night. no events on monitoring engineer. will rodriguez culture at this time. cardio consulted and appreciate recommendations and approval of starting motrin and colchine at this time. PPI for GI protection. will monitor over the next 24H on the monitor due to high risk of arrhythmia and hx of heart failure during myocarditis in the past. pt will need to be monitored closely by cardiology for further evaluation and prevention of repeated episodes 2. HTN- not on home medications. currently controlled. will monitor for now 3. Morbid obesity-educated need for weight reduction. healthy eating habits during this time as exercise is to be avoided during acute myocarditis. but encouraged healthly living changes. 4. DVT ppx- EAM
[2016-08-22 18:12] LABS: TROPONIN I 0.33 ng/ml (0.00-0.05)
[2016-08-23 07:47] LABS: MCH 25.2 pg (25.7-33.7); MCHC 33.2 g/dl (32.0-35.9); MEAN CELL VOLUME 75.8 fl (80-96); MEAN PLT VOLUME 9.4 fl (7.5-11.1); PLATELET COUNT 238 K/MM3 (134-434); WHITE BLOOD COUNT 10.1 K/mm3 (4.0-10.0)
[2016-08-23] MEDS: IBUPROFEN 400 MG TABLET (FP) PO PRN (07:54)
[2016-08-23 08:42] LABS: TROPONIN I 0.39 ng/ml (0.00-0.05)
--- NOTE | 2016-08-23 09:22 | PN ---
Progress Note, Physician Chief Complaint: Feeling well No further chest pain. TELE: NSR with sinus tach. No sig ventricular ectopy. - Current Medication List Current Medications: Active Medications Acetaminophen (Tylenol -) 1,000 mg PO Q6H PRN PRN Reason: FEVER OR PAIN Last Admin: 08/22/16 17:23 Dose: 1,000 mg Albuterol Sulfate (Ventolin Hfa Inhaler -) 1 puff IH Q4H PRN PRN Reason: SHORTNESS OF BREATH Colchicine (Colcrys -) 0.6 mg PO DAILY [facility] Last Admin: 08/22/16 10:14 Dose: 0.6 mg Ibuprofen (Motrin -) 400 mg PO Q6H PRN PRN Reason: PAIN Last Admin: 08/23/16 07:54 Dose: 400 mg Pantoprazole Sodium (Protonix -) 20 mg PO DAILY [facility] Last Admin: 08/22/16 10:14 Dose: 20 mg - Objective Vital Signs: Vital Signs Temperature 97.9 F 08/23/16 06:00 Pulse Rate 81 08/23/16 06:00 Respiratory Rate 20 08/23/16 06:38 Blood Pressure 99/64 08/23/16 06:00 O2 Sat by Pulse Oximetry (%) 93 L 08/23/16 06:38 Constitutional: Yes: No Distress, Calm Eyes: Yes: Conjunctiva Clear Cardiovascular: Yes: Regular Rate and Rhythm Respiratory: Yes: CTA Bilaterally Gastrointestinal: Yes: Soft, Abdomen, Obese Edema: No Neurological: Yes: Alert, Oriented Labs: CBC, BMP 08/23/16 05:35 INR, PTT INR 1.42 (0.82-1.09) H 08/22/16 05:35 Laboratory Tests 08/22/16 08/22/16 08/23/16 06:05 17:10 05:35 WBC 10.1 H Hgb 14.6 Plt Count 238 Creatine Kinase 176 189 Troponin I 0.22 H D 0.33 H D 08/23/16 05:35 WBC Hgb Plt Count Creatine Kinase 149 Troponin I 0.39 H CRP 13 - ....Imaging EKG: Image Reviewed Assessment/Plan IMP: Fever and suspected perimyocarditis Normal LVEF REC: Symptoms improved with NSAIDS and colchicine. No V- arrhythmias noted, LVEF normal. Reluctant to perform stress MIBI in setting of acute perimyocarditis, but would like to assure perfusion is normal. Will discuss options for coronary CTA-- may need to transfer as we do not have this available in our facility.
[2016-08-23] MEDS: COLCHICINE 0.6 MG TABLET (FP) PO SCH (09:37)
[2016-08-23] MEDS: PANTOPRAZOLE 20 MG TABLET (FP) PO SCH (09:38)
[2016-08-23 13:45] VITALS: BP 131/78; PULSE 99; TEMP 98.7
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
--- NOTE | 2016-08-23 14:01 | PN ---
Teaching Attending Note Name of Resident: Smith Lester ATTENDING PHYSICIAN STATEMENT I saw and evaluated the patient. I reviewed the resident's note and discussed the case with the resident. I agree with the resident's findings and plan as documented. SUBJECTIVE:no recurrent CP since starting colchicine.denies CP, SOB,fever, chills, N/V/C/D OBJECTIVE: Last Vital Signs Temp Pulse Resp BP Pulse Ox 98.7 F 99 H 20 131/78 96 08/23/16 13:44 08/23/16 13:44 08/23/16 13:44 08/23/16 13:44 08/23/16 09:00 General NAD CV S1 S2 RRR no murmur/rub/gallop distant heart sounds no chest wall tenderness lungs CTA B/L no wheezing/rales/rhonchi ASSESSMENT AND PLAN: 31yo M with PMH morbid obesity, HTN, dyslipidemia and myocarditis presented to the ER and was admitted for further evaluation of their emergent condition 1. Pleuritic CP-likely myopericarditis. afebrile 24H. sinus tachycardia up to 120 on the monitor. no VT/VF. plan for cardiac CT for risk assessment. will be transfered to [facility] as we do not capability here. recommend avoidance of exercise till after CP resolves. Avoid drinking ETOH. continue colchicine for 3 months. encouraged close follow up with Cardiology once discharged from [place]. Cx negative
== END 2016-08-23 13:59 | disposition short-term general hospital (02) | DRG 207 ==
LOC: JER 03:22 → JERBED 05:08 → OBSVTOIN 05:37 → J4W 13:53
PROVIDERS: ADMIT Internal Medicine; ATTEND Internal Medicine
DX: I51.4 Myocarditis, unspecified (principal); I10 Essential (primary) hypertension; E78.5 Hyperlipidemia, unspecified; E66.01 Morbid (severe) obesity due to excess calories; Z68.38 Body mass index [BMI] 38.0-38.9, adult; R07.9 Chest pain, unspecified
CPT/HCPCS: 36415; 71010-TC; 71275-TC; 80053; 80061; 82550; 82553; 83690; 83721; 83735; 84484; 85025; 85027; 85610; 85730; 86140; 87040; 87086; 87254; 87804; 93005; 93010; 93306-TC; 99284-25; G0378

== ENCOUNTER 2017-10-13 18:54 | Inpatient (IN) | payer OTHER ==
--- NOTE | 2017-10-13 19:12 | PDOC ---
History of Present Illness - History of Present Illness Initial Comments: 10/13/17 19:55 Patient is 32 M, with PMHx of mild carditis, FMHx of stroke, who presents with speech difficulty since yesterday. Patient reports difficulty formulating words. He states that he has trouble with producing speech when he tries to speak. He describes it more as an aphasia rather than a dysarthria. Patient does not report difficulty with word finding. Denies h/o seizures, weakness, or visual changes. 10/13/17 21:50 <Lara Farfan - Last Filed: 10/13/17 21:50> <Jing Coelho - Last Filed: 10/13/17 23:50> - General Chief Complaint: CVA/TIA Stated Complaint: SLURR SPEECH Time Seen by Provider: 10/13/17 19:07 Past History <Lara Farfan - Last Filed: 10/13/17 21:50> - Past Medical History Asthma: Yes Cardiac Disorders: Yes (Myocarditis) COPD: No HTN: Yes Hypercholesterolemia: Yes - Surgical History Cardiac Surgery: Yes (Catheterization) - Immunization History Immunization Up to Date: No - Suicide/Smoking/Psychosocial Hx Smoking Status: No Smoking History: Never smoked Have you smoked in the past 12 months: No Number of Cigarettes Smoked Daily: 0 Hx Alcohol Use: No Drug/Substance Use Hx: No Substance Use Type: None Hx Substance Use Treatment: No <Jing Coelho - Last Filed: 10/13/17 23:50> - Past Medical History Allergies/Adverse Reactions: Allergies Allergy/AdvReac Type Severity Reaction Status Date / Time No Known Allergies Allergy Verified 10/13/17 18:59 Home Medications: Ambulatory Orders Albuterol Sulfate Inhaler - [Ventolin HFA Inhaler -] 1 puff IN PRN PRN 08/21/16 Carvedilol [Coreg -] 3.125 mg PO BID 10/13/17 Lisinopril [Prinivil] mg PO DAILY 10/13/17 Spironolactone [Aldactone] 25 mg PO DAILY 10/13/17 Review of Systems - Review of Systems Comments:: 10/13/17 19:58 CONSTITUTIONAL: Absent: fever, chills, diaphoresis, generalized weakness, malaise, loss of appetite HEENT: Absent: rhinorrhea, nasal congestion, throat pain, throat swelling, difficulty swallowing, mouth swelling, ear pain, eye pain, visual changes CARDIOVASCULAR: Absent: chest pain, syncope, palpitations, irregular heart rate, lightheadedness , peripheral edema RESPIRATORY: Absent: cough, shortness of breath, dyspnea with exertion, orthopnea, wheezing, stridor, hemoptysis GASTROINTESTINAL: Absent: abdominal pain, abdominal distension, nausea, vomiting, diarrhea, constipation, melena, hematochezia GENITOURINARY: Absent: dysuria, frequency, urgency, hesitancy, hematuria, flank pain, genital pain MUSCULOSKELETAL: Absent: myalgia, arthralgia, joint swelling SKIN: Absent: rash, itching, pallor HEMATOLOGIC/IMMUNOLOGIC: Absent: easy bleeding, easy bruising, lymphadenopathy, frequent infections ENDOCRINE: Absent: unexplained weight gain, unexplained weight loss, heat intolerance, cold intolerance NEUROLOGIC: Present: difficultly with speech production. Absent: headache, focal weakness or paresthesias, dizziness, unsteady gait, seizure, mental status changes, bladder or bowel incontinence PSYCHIATRIC: Absent: anxiety, depression, suicidal or homicidal ideation, hallucinations. <Lara Farfan - Last Filed: 10/13/17 21:50> *Physical Exam - Vital Signs Last Vital Signs Temp Pulse Resp BP Pulse Ox 99 F 79 19 135/92 100 10/13/17 18:59 10/13/17 18:59 10/13/17 18:59 10/13/17 18:59 10/13/17 18:59 - Physical Exam Comments: 10/13/17 19:59 GENERAL: Well developed, well nourished. Awake and alert. No acute distress. HEENT: Normocephalic, atraumatic. PERRLA, EOMI. No conjunctival pallor. Sclera are non- icteric. Moist mucous membranes. Oropharynx is clear. NECK: Supple. Full ROM. No JVD. Carotid pulses 2+ and symmetric, without bruits. No thyromegaly. No lymphadenopathy. CARDIOVASCULAR: Regular rate and rhythm. No murmurs, rubs, or gallops. Distal pulses are 2+ and symmetric. PULMONARY: No evidence of respiratory distress. Lungs clear to auscultation bilaterally. No wheezing, rales or rhonchi. ABDOMINAL: Soft. Non-tender. Non-distended. No rebound or guarding. No organomegaly. Normoactive bowel sounds. MUSCULOSKELETAL Normal range of motion at all joints. No bony deformities or tenderness. No CVA tenderness. EXTREMITIES: No cyanosis. No clubbing. No edema. No calf tenderness. SKIN: Warm and dry. Normal capillary refill. No rashes. No jaundice. NEUROLOGICAL: Alert, awake, appropriate. Cranial nerves 2-12 intact. No deficits to light touch and temperature in face, upper extremities and lower extremities. No motor deficits in the upper extremities and lower extremities. Normoreflexic in the upper and lower extremities. Toes are down-going bilaterally. Gait is normal without ataxia. PSYCHIATRIC: Cooperative. Good eye contact. Appropriate mood and affect. <Lara Farfan - Last Filed: 10/13/17 21:50> - Vital Signs Last Vital Signs Temp Pulse Resp BP Pulse Ox 99 F 79 19 135/92 100 10/13/17 18:59 10/13/17 18:59 10/13/17 18:59 10/13/17 18:59 10/13/17 18:59 <Jing Coelho - Last Filed: 10/13/17 23:50> NIH Stroke Scale - Last Known Well Date/Time & Onset Date Last Known Well: 10/12/17 Time Last Known Well: 20:00 - Initial Evaluation Level of consciousness: Alert Ask patient the month and their age: Answers both correctly Ask patient to open & close eyes; make fist and let go: Obeys both correctly Best gaze (horizontal eye movement): Normal Visual field testing: No visual field loss Facial paresis (Show teeth/raise eyebrows/close eyes tight): Normal symmetrical movement Motor Function: Left Arm: Normal Motor Function: Right Arm: Normal (extends arm 90 (or 45) degrees for 10 seconds without drift Motor Function: Left Leg: Normal (extends leg 30 degrees for 5 seconds without drift) Motor Function: Right Leg: Normal (extends leg 30 degrees for 5 seconds without drift) Limb Ataxia: No ataxia Sensory(Use pinprick test arms,legs,trunk,face/side to side): Normal Best language (Describe picture, name items, read sentences): Mild to moderate aphasia Dysarthria (read several words): Normal articulation Extinction and Inattention: No abnormality - Total Score NIH Stroke Scale Score: 1 <Jing Coelho - Last Filed: 10/13/17 23:50> tPA Exclusion checklist 3-4.5h - Time Elapsed Date last known well: 10/12/17 Time last known well: 20:00 Elaspsed time: 1 Day(s) and 3 Hour(s) and 49 Minutes - Thrombolytic Therapy Candidate Is patient eligible for thrombolytic therapy: No - Exclusion Criteria 3-4.5 hr SBP greater than 185 or DBP greater than 110mmHg despite tx: No Recent IC/spinal surgery,head trauma or stroke<3mos.: No Hx IC hemorrhage, IC neoplasm, AV malformation or aneurysm: No Active internal bleeding: No Blding diathesis(low plt ct, inc PTT,INR>1.7 or use of NOAC): No Symptoms suggest subarachnoid hemorrhage: No Arterial puncture at noncompressible site in previous 7 days: No Blood glucose concentration less than 50mg/dL (2.7mmol/L): No - Relative Exclusion Criteria 3-4.5 hr Life expectancy <1 yr or severe co-morbid illness: No : No Patient/family refused: No Rapid improvement: No Stroke severity too mild: Yes Recent acute AR (w/in previous 3 months): No Seizure at onset with postictal residual neuro impairments: No Major surgery or serious trauma w/in previous 14 days: No Recent GI or hemorrhage (w/in previous 21 days): No - Add'l Relative Exclusion 3-4.5 hr Age > 80: No Hx of both diabetes AND prior ischemic stroke: No Taking an oral anticoagulant regardless of INR: No NIHSS >25: No - Ineligibility reason(s) Reasons No tPA given: Outside of window - delayed arrival (PT'S ONLY SYMPTOM WAS MILD SLURRED SPEECH) <Jing Coelho - Last Filed: 10/13/17 23:50> Critical Care Time/[facility] Note - Medical Decision Making Note: 10/13/17 20:[address] Michel for neurology consult. 10/13/17 20:[address]: Impression: Focal low attenuation in the white matter of the LEFT centrum and extending partially into the area of the posterior limb of the external capsule and external capsular areas. This also partially involves the thalamus and adjacent basal ganglia. This measures up to 2.7 cm in greatest dimension. This is a nonspecific finding. The differential diagnosis includes ischemia and mass. Followup with MRI with enhancement should be obtained. No evidence of intracranial hemorrhage or mass. Reported By: Panchito Briceno MD 10/13/17 19:24 EST <Lara Farfan - Last Filed: 10/13/17 21:50> - Medical Decision Making Note: 10/13/17 21:36 DR Villar [phone] <Jing Coelho - Last Filed: 10/13/17 23:50> Discharge Disposition <Lara Farfan - Last Filed: 10/13/17 21:50> - Discharge Dispostion Decision to Admit order: Yes <Jing Coelho - Last Filed: 10/13/17 23:50> - Diagnosis Speech articulation disorder CVA (cerebral vascular accident) Qualifiers: CVA mechanism: unspecified Qualified Code(s): I63.9 - Cerebral infarction, unspecified
[2017-10-13] MEDS ORDERED: SODIUM CHLORIDE 1,000 ML IV SCH (19:15)
[2017-10-13 20:56] LABS: BASO % 0.6 % (0-2.0); EOS % 7.7 % (0-4.5); HEMATOCRIT 43.9 % (35.4-49); HEMOGLOBIN 14.9 GM/dL (11.7-16.9); LYMPH % 19.8 % (8-40); MCH 26.4 pg (25.7-33.7); MCHC 33.9 g/dl (32.0-35.9); MEAN CELL VOLUME 77.9 fl (80-96); MEAN PLT VOLUME 9.2 fl (7.5-11.1); MONO % 7.7 % (3.8-10.2); NEUT % 64.2 % (42.8-82.8); PLATELET COUNT 275 K/MM3 (134-434); RBC 5.63 M/mm3 (4.00-5.60); RDW 14.1 % (11.9-15.9); WHITE BLOOD COUNT 12.6 K/mm3 (4.0-10.0)
[2017-10-13 21:13] LABS: INR 1.11 (0.82-1.09); PROTHROMBIN TIME (PATIENT) 12.5 SEC (9.7-13.0)
[2017-10-13 21:25] LABS: ALBUMIN 4.1 g/dl (3.4-5.0); ANION GAP 9 (8-16); BILIRUBIN,TOTAL 0.3 mg/dL (0.2-1.0); BLOOD UREA NITROGEN 13 mg/dL (7-18); CALCIUM 8.6 mg/dL (8.5-10.1); CHLORIDE 103 mmol/L (98-107); CHOLESTEROL 181 mg/dL (50-200); CO2 27 mmol/L (21-32); GLUCOSE,RANDOM 105 mg/dL (74-106); HDL CHOLESTEROL 29 mg/dL (40-60); POTASSIUM 3.8 mmol/L (3.5-5.1); SGOT/AST 33 U/L (15-37); SGPT/ALT 46 U/L (12-78); SODIUM 139 mmol/L (136-145); TOT PROT 7.6 g/dl (6.4-8.2); TRIGLYCERIDES 307 mg/dL (35-160)
[2017-10-13 21:26] LABS: ALK PHOS 60 U/L (45-117)
--- NOTE | 2017-10-13 21:54 | PN ---
Teaching Attending Note Name of Resident: Kimberli Ray ATTENDING PHYSICIAN STATEMENT I saw and evaluated the patient. I reviewed the resident's note and discussed the case with the resident. I agree with the resident's findings and plan as documented. SUBJECTIVE: 32 M with pmhx. of HTN, HLD, and mycarditis, who presents with aphasia. States has had difficulty formulating words since yesterday. Notes he has trouble formulating speech. No headaches, or weakness, No visual changes. No chest pain , pressure or shortness of breath. States this started at 9 pm yesterday and has trouble articulating his words. Notes he understands all words, but has a "stutter" when he speaks. No chest pain or pressure. No N, V, D. No headaches, dizziness, lightheadedness, numbness or tingling. OBJECTIVE: Physical: VS: Vital Signs Period Temp Pulse Resp BP Sys/Walker Pulse Ox Last 24 Hr 99 F 79 19 135/92 100 GEN: NAD, Resting in bed, AA0X3 HEENT: NCAT, PERRL, Throat without erythema or exudates CARD: RRR S1, S2 RESP: CTAB ABD: BSx4, NTD to palpation EXT: - C/C/E NEURO: ? Mild L. Facial droop, MS +5/5 CN II- XII intact. CBCD WBC 12.6 K/mm3 (4.0-10.0) H 10/13/17 20:45 RBC 5.63 M/mm3 (4.00-5.60) H 10/13/17 20:45 Hgb 14.9 GM/dL (11.7-16.9) 10/13/17 20:45 Hct 43.9 % (35.4-49) 10/13/17 20:45 MCV 77.9 fl (80-96) L 10/13/17 20:45 MCHC 33.9 g/dl (32.0-35.9) 10/13/17 20:45 RDW 14.1 % (11.9-15.9) 10/13/17 20:45 Plt Count 275 K/MM3 (134-434) 10/13/17 20:45 MPV 9.2 fl (7.5-11.1) 10/13/17 20:45 CMP Sodium 139 mmol/L (136-145) 10/13/17 20:45 Potassium 3.8 mmol/L (3.5-5.1) 10/13/17 20:45 Chloride 103 mmol/L (98-107) 10/13/17 20:45 Carbon Dioxide 27 mmol/L (21-32) 10/13/17 20:45 Anion Gap 9 (8-16) 10/13/17 20:45 BUN 13 mg/dL (7-18) 10/13/17 20:45 Creatinine 1.0 mg/dL (0.7-1.3) D 10/13/17 20:45 Creat Clearance w eGFR > 60 (>60) 10/13/17 20:45 Random Glucose 105 mg/dL (74-106) 10/13/17 20:45 Calcium 8.6 mg/dL (8.5-10.1) 10/13/17 20:45 Total Bilirubin 0.3 mg/dL (0.2-1.0) D 10/13/17 20:45 AST 33 U/L (15-37) D 10/13/17 20:45 ALT 46 U/L (12-78) D 10/13/17 20:45 Alkaline Phosphatase 60 U/L (45-117) 10/13/17 20:45 Total Protein 7.6 g/dl (6.4-8.2) 10/13/17 20:45 Albumin 4.1 g/dl (3.4-5.0) 10/13/17 20:45 CARDIAC ENZYMES Creatine Kinase 445 IU/L (39-308) H 10/13/17 20:45 Troponin I < 0.02 ng/ml (0.00-0.05) D 10/13/17 20:45 Ambulatory Orders RX: Albuterol Sulfate Inhaler - [Ventolin HFA Inhaler -] 1 puff IN PRN PRN 08/21 Carvedilol [Coreg -] 3.125 mg PO BID 10/13/17 Lisinopril [Prinivil] mg PO DAILY 10/13/17 Spironolactone [Aldactone] 25 mg PO DAILY 10/13/[address]: Impression: Focal low attenuation in the white matter of the LEFT centrum and extending partially into the area of the posterior limb of the external capsule and external capsular areas. This also partially involves the thalamus and adjacent basal ganglia. This measures up to 2.7 cm in greatest dimension. This is a nonspecific finding. The differential diagnosis includes ischemia and mass. Followup with MRI with enhancement should be obtained. No evidence of intracranial hemorrhage or mass. ASSESSMENT AND PLAN: 32 M with pmhx. of HTN, HLD, and mycarditis,who presents with aphasia 1.) CVA/?MASS - MRI Brain w/wo con - Neuro consulted - Neurosx consult - Echo/Carotids - Lipid Panel/HgbA1c - Statin - Speech & Swallow consult - ? ASA, would hold if Mass, may need Bx 2.) HTN - C/W Cored, [place] 3.) HLD - Statin 4.) Obesity - RD consult 5.) Dvt ppx - Scds
--- NOTE | 2017-10-13 21:55 | HP ---
CHIEF COMPLAINT: slurred speech PCP: Dr. Estefanía Chacon Cardiology: Dr. Jay Luna HISTORY OF PRESENT ILLNESS: 32yo man with PMH of morbid obesity, HTN, HLD, myocarditis who presents with stuttered/slurred speech since last night. [place] [facility] [place] 9[place] last night, he developed difficulty with pronouncing words, which has never occurred before. He denies any problems with comprehension or word finding, and only has difficulty producing the words. His , who is at bedside, endorses no change in comprehension or unintelligible speech. Patient denies any prodromal symptoms including seizures, weakness, lightheadedness, dizziness, SEXTON, changes in vision/taste/smell. Denies any CP, chest tightness or discomfort. No sob, fever, chills, URI symtpoms, abdominal pain, or urinary symptoms. ER course was notable for: (1) Head CT with 2.7cm ? mass vs infarct; no e/o hemorrhage or surrounding edema (2) (3) Recent Travel: none PAST MEDICAL HISTORY: see HPI PAST SURGICAL HISTORY: Cardiac Catheterization - 2010 [facility] - 2011 Social History: time broker student; Unlimited exercise tolerance Smoking: never Alcohol: none Drugs: none Family History: Dad - Ao valve replacement; 2 x Strokes Allergies: NKDA Home Medications Medication Instructions Recorded Albuterol Sulfate Inhaler - 1 puff IN PRN PRN 08/21/16 [Ventolin HFA Inhaler -] Carvedilol [Coreg -] 3.125 mg PO BID 10/13/17 Lisinopril [Prinivil] 2.5 mg PO DAILY 10/13/17 Spironolactone [Aldactone] 25 mg PO DAILY 10/13/17 REVIEW OF SYSTEMS CONSTITUTIONAL: Absent: fever, chills, diaphoresis, generalized weakness, malaise, loss of appetite, weight change HEENT: Absent: rhinorrhea, nasal congestion, throat pain, throat swelling, difficulty swallowing, mouth swelling, ear pain, eye pain, visual changes CARDIOVASCULAR: Absent: chest pain, syncope, palpitations, irregular heart rate, lightheadedness , peripheral edema RESPIRATORY: Absent: cough, shortness of breath, dyspnea with exertion, orthopnea, wheezing, stridor, hemoptysis GASTROINTESTINAL: Absent: abdominal pain, abdominal distension, nausea, vomiting, diarrhea, constipation, melena, hematochezia GENITOURINARY: Absent: dysuria, frequency, urgency, hesitancy, hematuria, flank pain, genital pain MUSCULOSKELETAL: Absent: myalgia, arthralgia, joint swelling, back pain, neck pain SKIN: Absent: rash, itching, pallor HEMATOLOGIC/IMMUNOLOGIC: Absent: easy bleeding, easy bruising, lymphadenopathy, frequent infections ENDOCRINE: Absent: unexplained weight gain, unexplained weight loss, heat intolerance, cold intolerance NEUROLOGIC: Absent: headache, focal weakness or paresthesias, dizziness, unsteady gait, seizure, mental status changes, bladder or bowel incontinence PSYCHIATRIC: Absent: anxiety, depression, suicidal or homicidal ideation, hallucinations. PHYSICAL EXAMINATION Vital Signs - 24 hr 10/13/17 18:59 Temperature 99 F Pulse Rate 79 Respiratory 19 Rate Blood Pressure 135/92 O2 Sat by Pulse 100 Oximetry (%) GENERAL: Awake, alert, and fully oriented, in no acute distress. HEAD: Normal with no signs of trauma. EYES: PERRLA, EOMI, sclera anicteric, conjunctiva clear EARS, NOSE, THROAT: Oropharynx clear without exudates. Moist mucous membranes. NECK: supple, no cervical LAD LUNGS: CTAB HEART: rrr, normal s1/s2, no m/r/g ABDOMEN: soft, obese, NTND UPPER EXTREMITIES: 2+ radial pulses, wwp, no edema LOWER EXTREMITIES: 2+ DP pulses, warm, wwp, no calf tenderness, no edema NEUROLOGICAL: Cranial nerves II-XII intact except mild L facial droop, speech intelligble, but stuttered. Normal gait without ataxia. No pronator drift, no dymetria or dysdiachokinesia. Motor Strength 5/5 in upper and lower extremities ; Sensation to light touch intact in distal upper and lower extremities. PSYCHIATRIC: Cooperative. Good eye contact. Appropriate mood and affect. CBC, BMP 10/13/17 20:45 10/13/17 20:45 Hepatic Panel Total Bilirubin 0.3 mg/dL (0.2-1.0) D 10/13/17 20:45 AST 33 U/L (15-37) D 10/13/17 20:45 ALT 46 U/L (12-78) D 10/13/17 20:45 Alkaline Phosphatase 60 U/L (45-117) 10/13/17 20:45 Albumin 4.1 g/dl (3.4-5.0) 10/13/17 20:45 10/13/17 20:45 Creatine Kinase 445 H CK-MB (CK-2) 4.927 H Troponin I < 0.02 D INR 1.11 (0.82-1.09) 10/13/17 20:45 10/13/17 20:45 Triglycerides 307 H D Cholesterol 181 D Total LDL Cholesterol 127 H D HDL Cholesterol 29 L EKG: NSR, rate 92, normal axis and intervals, possible LAE, QTc 430 CXR, my prelim read: No focal consolidation, no pneumothorax or pleural effusion ; no e/o acute cardiopulmonary pathology Head CT (10/13/17): Imaging automatic transmission mechanic: Impression: Focal low attenuation in the white matter of the LEFT centrum and extending partially into the area of the posterior limb of the external capsule and external capsular areas. This also partially involves the thalamus and adjacent basal ganglia. This measures up to 2.7 cm in greatest dimension. This is a nonspecific finding. The differential diagnosis includes ischemia and mass. Followup with MRI with enhancement should be obtained. No evidence of intracranial hemorrhage or mass. ASSESSMENT/PLAN: 32yo young man with PMH of morbid obesity, HTN, HLD, myocarditis who presents with acute onset of change in speech since last night and found to have abnormal head CT with finding of possible infarct vs mass. #stuttered/slurred speech, head CT 2.7cm ? mass vs infarct. No edema seen on CT ; will hold off on Decadron -Neurology and Neurosurgery consulted -Check final Head CT report -Brain MRI w and w/o contrast ordered -Follow- up CVA w/u including 2D ECHO, Lipid panel, A1c, Carotid Dopplers -[facility] and PT eval -Hold ASA for now until MRI; if mass may need intervention #HTN - c/w home lisinopril 2.5mg QD, Spironolactone 25mg QD, Coreg 3.125mg BID #morbid obesity -Check A1c -RD consult #FEN NS @ 42cc/hr for pre/post contrast exposure lytes wnl NPO for now, await [facility] eval #PPX - SCDs #DISPO: telemetry FULL code Plan d/w Dr. Bryan Ray MD PGY1 - Internal Medicine, Night Can Operator Visit type - Emergency Visit Emergency Visit: Yes ED Registration Date: 10/13/17 Care time: The patient presented to the Emergency Department on the above date and was hospitalized for further evaluation of their emergent condition. - New Patient This patient is new to me today: Yes Date on this admission: 10/14/17 - Critical Care Critical Care patient: No Hospitalist Screening - Colonoscopy Questionnaire Colonoscopy Questionnaire: Colonoscopy Questionnaire - Patient: 50 - 75 years old and never had a screening colonoscopy: No History of colon or rectal polyps, or CA: Unknown History of IBD, Crohn's disease or UC: Unknown History of abdominal radiation therapy as a child: Unknown - Relative: 1 with colon or rectal CA, or polyps at age 60 or younger: Unknown Colon or rectal CA diagnosed at age 45 or younger: Unknown Multiple relatives with colon or rectal CA: Unknown - Outcome: Screening Result: Negative Screen
[2017-10-14] MEDS ORDERED: PNEUMOC 13-VAL CONJ-DIP CRM/PF 0.5 ML DISP.SYRIN IM ONE (01:02)
[2017-10-14 01:21] LABS: URINE APPEARANCE CLEAR; URINE BILIRUBIN NEGATIVE (<2.0 mg/dL); URINE COLOR LTYELLOW; URINE GLUCOSE (UA) NEGATIVE (NEGATIVE); URINE KETONE NEGATIVE (NEGATIVE); URINE LEUK ESTERASE NEGATIVE (NEGATIVE); URINE NITRITE NEGATIVE (NEGATIVE); URINE PROTEIN NEGATIVE (NEGATIVE); URINE UROBILINOGEN NEGATIVE mg/dL (0.2-1.0)
[2017-10-14 02:01] LABS: EPI CELLS RARE /HPF (FEW); URINE MUCUS RARE
[2017-10-14 03:34] LABS: BASO % 0.9 % (0-2.0); EOS % 8.6 % (0-4.5); HEMATOCRIT 42.7 % (35.4-49); HEMOGLOBIN 14.5 GM/dL (11.7-16.9); LYMPH % 23.9 % (8-40); MCH 26.5 pg (25.7-33.7); MEAN CELL VOLUME 77.8 fl (80-96); MEAN PLT VOLUME 9.4 fl (7.5-11.1); MONO % 6.9 % (3.8-10.2); NEUT % 59.7 % (42.8-82.8); PLATELET COUNT 257 K/MM3 (134-434); RDW 13.9 % (11.9-15.9); WHITE BLOOD COUNT 12.7 K/mm3 (4.0-10.0)
[2017-10-14 07:28] LABS: ANION GAP 9 (8-16); BLOOD UREA NITROGEN 13 mg/dL (7-18); CALCIUM 8.7 mg/dL (8.5-10.1); CHLORIDE 106 mmol/L (98-107); CO2 24 mmol/L (21-32); CREATININE 0.9 mg/dL (0.7-1.3); GLUCOSE,RANDOM 95 mg/dL (74-106); SODIUM 139 mmol/L (136-145)
--- NOTE | 2017-10-14 09:50 | CONSULT ---
Consult - text type - Consultation Consultation Note: Neurology CHIEF COMPLAINT: slurred speech HISTORY OF PRESENT ILLNESS: 32yo man with PMH of morbid obesity, HTN, HLD, myocarditis who presents with stuttered/slurred speech since night prior to admission. [place] [facility] [place] before admission and developed difficulty with pronouncing words, which has never occurred before. He denied any problems with comprehension or word finding, and only has difficulty producing the words and was visibly stuttering. He denied any prodromal symptoms including seizures, weakness, lightheadedness, dizziness, SEXTON, changes in vision/taste/smell. Denies any CP, chest tightness or discomfort. No sob, fever, chills, URI symtpoms, abdominal pain, or urinary symptoms. Head CT completed and reported with Left basal ganglia region, circular appearing, 2.7 cm mass vs infarct; no e/o hemorrhage or surrounding edema. Discussed with ER last night, he was given ASA 81mg as precaution. Recomended MRI brain with and w/o contrast. He does have underlying HTN and HLD as risk factor though appearance is suspicious for neoplasm. Carotid doppler also reviewed and without HD significant stenosis. Patient anxious regarding diagnosis and would like imaging completed. Spoke to resident and will try to complete as soon as radiology is able. Recent Travel: none PAST MEDICAL HISTORY: see HPI PAST SURGICAL HISTORY: Cardiac Catheterization - 2010 [facility] - 2011 Social History: health it specialist student; Unlimited exercise tolerance Smoking: never Alcohol: none Drugs: none Family History: Dad - Ao valve replacement; 2 x Strokes Allergies: NKDA Home Medications Medication Instructions Recorded Albuterol Sulfate Inhaler - 1 puff IN PRN PRN 08/21/16 [Ventolin HFA Inhaler -] Carvedilol [Coreg -] 3.125 mg PO BID 10/13/17 Lisinopril [Prinivil] 2.5 mg PO DAILY 10/13/17 Spironolactone [Aldactone] 25 mg PO DAILY 10/13/17 REVIEW OF SYSTEMS CONSTITUTIONAL: Absent: fever, chills, diaphoresis, generalized weakness, malaise, loss of appetite, weight change HEENT: Absent: rhinorrhea, nasal congestion, throat pain, throat swelling, difficulty swallowing, mouth swelling, ear pain, eye pain, visual changes CARDIOVASCULAR: Absent: chest pain, syncope, palpitations, irregular heart rate, lightheadedness , peripheral edema RESPIRATORY: Absent: cough, shortness of breath, dyspnea with exertion, orthopnea, wheezing, stridor, hemoptysis GASTROINTESTINAL: Absent: abdominal pain, abdominal distension, nausea, vomiting, diarrhea, constipation, melena, hematochezia GENITOURINARY: Absent: dysuria, frequency, urgency, hesitancy, hematuria, flank pain, genital pain MUSCULOSKELETAL: Absent: myalgia, arthralgia, joint swelling, back pain, neck pain SKIN: Absent: rash, itching, pallor HEMATOLOGIC/IMMUNOLOGIC: Absent: easy bleeding, easy bruising, lymphadenopathy, frequent infections ENDOCRINE: Absent: unexplained weight gain, unexplained weight loss, heat intolerance, cold intolerance NEUROLOGIC: Absent: headache, focal weakness or paresthesias, dizziness, unsteady gait, seizure, mental status changes, bladder or bowel incontinence PSYCHIATRIC: Absent: anxiety, depression, suicidal or homicidal ideation, hallucinations. PHYSICAL EXAMINATION Vital Signs Temperature 98.8 F 10/14/17 06:00 Pulse Rate 80 10/14/17 08:39 Respiratory Rate 18 10/14/17 08:39 Blood Pressure 148/94 10/14/17 08:39 O2 Sat by Pulse Oximetry (%) 98 10/14/17 00:30 GENERAL: Awake, alert, and fully oriented, in no acute distress. HEAD: Normal with no signs of trauma. EYES: PERRLA, EOMI, sclera anicteric, conjunctiva clear EARS, NOSE, THROAT: Oropharynx clear without exudates. Moist mucous membranes. NECK: supple, no cervical LAD LUNGS: CTAB HEART: rrr, normal s1/s2, no m/r/g ABDOMEN: soft, obese, NTND UPPER EXTREMITIES: 2+ radial pulses, wwp, no edema LOWER EXTREMITIES: 2+ DP pulses, warm, wwp, no calf tenderness, no edema NEUROLOGICAL: Cranial nerves II-XII intact except mild L facial droop, speech intelligble, but stuttered. Normal gait without ataxia. No pronator drift, no dymetria or dysdiachokinesia. Motor Strength 5/5 in upper and lower extremities ; Sensation to light touch intact in distal upper and lower extremities. PSYCHIATRIC: Cooperative. Good eye contact. Appropriate mood and affect. CBCD WBC 12.7 K/mm3 (4.0-10.0) H 10/14/17 03:00 RBC 5.50 M/mm3 (4.00-5.60) 10/14/17 03:00 Hgb 14.5 GM/dL (11.7-16.9) 10/14/17 03:00 Hct 42.7 % (35.4-49) 10/14/17 03:00 MCV 77.8 fl (80-96) L 10/14/17 03:00 MCHC 34.0 g/dl (32.0-35.9) 10/14/17 03:00 RDW 13.9 % (11.9-15.9) 10/14/17 03:00 Plt Count 257 K/MM3 (134-434) 10/14/17 03:00 MPV 9.4 fl (7.5-11.1) 10/14/17 03:00 CMP Sodium 139 mmol/L (136-145) 10/14/17 03:00 Potassium 4.0 mmol/L (3.5-5.1) 10/14/17 03:00 Chloride 106 mmol/L (98-107) 10/14/17 03:00 Carbon Dioxide 24 mmol/L (21-32) 10/14/17 03:00 Anion Gap 9 (8-16) 10/14/17 03:00 BUN 13 mg/dL (7-18) 10/14/17 03:00 Creatinine 0.9 mg/dL (0.7-1.3) 10/14/17 03:00 Creat Clearance w eGFR > 60 (>60) 10/13/17 20:45 Calcium 8.7 mg/dL (8.5-10.1) 10/14/17 03:00 Total Bilirubin 0.3 mg/dL (0.2-1.0) D 10/13/17 20:45 AST 33 U/L (15-37) D 10/13/17 20:45 ALT 46 U/L (12-78) D 10/13/17 20:45 Alkaline Phosphatase 60 U/L (45-117) 10/13/17 20:45 Total Protein 7.6 g/dl (6.4-8.2) 10/13/17 20:45 Albumin 4.1 g/dl (3.4-5.0) 10/13/17 20:45 Hepatic Panel Total Bilirubin 0.3 mg/dL (0.2-1.0) D 10/13/17 20:45 AST 33 U/L (15-37) D 10/13/17 20:45 ALT 46 U/L (12-78) D 10/13/17 20:45 Alkaline Phosphatase 60 U/L (45-117) 10/13/17 20:45 Albumin 4.1 g/dl (3.4-5.0) 10/13/17 20:45 10/13/17 20:45 Creatine Kinase 445 H CK-MB (CK-2) 4.927 H Troponin I < 0.02 D INR 1.11 (0.82-1.09) 10/13/17 20:45 10/13/17 20:45 Triglycerides 307 H D Cholesterol 181 D Total LDL Cholesterol 127 H D HDL Cholesterol 29 L EKG: NSR, rate 92, normal axis and intervals, possible LAE, QTc [address] (10/13/17): Focal low attenuation in the white matter of the LEFT centrum and extending partially into the area of the posterior limb of the external capsule and external capsular areas. This also partially involves the thalamus and adjacent basal ganglia. This measures up to 2.7 cm in greatest dimension. This is a nonspecific finding. The differential diagnosis includes ischemia and mass. Followup with MRI with enhancement should be obtained. No evidence of intracranial hemorrhage or mass. Carotid Doppler without HD significant stenosis. PLAN: 32yo man with PMH of morbid obesity, HTN, HLD, myocarditis who presents with stuttered/slurred speech since night prior to admission. Patient was [place] [facility] [place] 9PM night before admission and developed difficulty with pronouncing words, which has never occurred before. He denied any problems with comprehension or word finding, and only has difficulty producing the words and was visibly stuttering. He denied any prodromal symptoms including seizures, weakness, lightheadedness, dizziness, SEXTON, changes in vision/taste/smell. Denies any CP, chest tightness or discomfort. No sob, fever, chills, URI symtpoms, abdominal pain, or urinary symptoms. Head CT completed and reported with Left basal ganglia region, circular appearing, 2.7 cm mass vs infarct; no e/o hemorrhage or surrounding edema. Discussed with ER last night, he was given ASA 81mg as precaution. Recomended MRI brain with and w/o contrast. He does have underlying HTN and HLD as risk factor though appearance is suspicious for neoplasm. Resident to contact radiology to try to expedite imaging. If neoplasm , consider NSGY consult as well as consider steroids such as decadron if indicated. Monitor HTN, maintain normotensive range, on lisinopril 2.5mg QD, Spironolactone 25mg QD, Coreg 3.125mg BID. Continue Statin for hyperlipidemia. DVT ppx.
[2017-10-14] MEDS ORDERED: PNEUMOCOCCAL 23 VACCINE 0.5 ML VIAL IM ONE (10:00)
[2017-10-14] MEDS: CARVEDILOL 3.125 MG TABLET (FP) PO SCH ×2 (10:21→21:32)
[2017-10-14] MEDS: SPIRONOLACTONE 25 MG TABLET (FP) PO SCH (10:21)
[2017-10-14] MEDS: LISINOPRIL 5 MG TABLET (FP) PO SCH (10:21)
--- NOTE | 2017-10-14 10:52 | EKG ---
Test Reason : Blood Pressure : / mmHG Vent. Rate : 092 BPM Atrial Rate : 092 BPM P-R Int : 140 ms QRS Dur : 082 ms QT Int : 348 ms P-R-T Axes : 037 001 038 degrees QTc Int : 430 ms NORMAL SINUS RHYTHM POSSIBLE LEFT ATRIAL ENLARGEMENT BORDERLINE ECG WHEN COMPARED WITH ECG OF 22-AUG-2016 08:51, Confirmed by RUSTY TABOR MD ([id number]) on 10/14/2017 10:52:05 AM Referred By: Confirmed By:RUSTY TABOR MD
--- NOTE | 2017-10-14 11:16 | CONSULT ---
Admitting History and Physical - Primary Care Physician PCP: Rashaun Ramsey - Admission History of Present Illness: Per EMR: HISTORY OF PRESENT ILLNESS: 32yo man with PMH of morbid obesity, HTN, HLD, myocarditis who presents with stuttered/slurred speech since last night. Patient was at [facility] [place] when around 9PM last night, he developed difficulty with pronouncing words, which has never occurred before. He denies any problems with comprehension or word finding, and only has difficulty producing the words History Source: Patient, Family Member, Medical Record Limitations to Obtaining History: Clinical Condition - Smoking History Smoking history: Never smoked Have you smoked in the past 12 months: No Aproximately how many cigarettes per day: 0 - Alcohol/Substance Use Hx Alcohol Use: No - Social History ADL: Independent Occupation: Resp tx student Other Social History: Pt's father had 2 strokes, and his grandfather and aunt have had strokes as well. History - Admission Reason For Visit: CVA SPEECH ARTICULATION DISORDER - Diagnostics CT Scan: Report Reviewed (Focal low attenuation in the white matter of the LEFT centrum and extending partially into the area of the posterior limb of the external capsule and external capsular areas. This also partially involves the thalamus and adjacent basal ganglia. This measures up to 2.7 cm in greatest dimension. This is a nonspecific finding. The differential diagnosis includes ischemia and mass. Followup with MRI with enhancement should be obtained. No evidence of intracranial hemorrhage or mass.) MRI: Pending - General Mental Status: Alert and Oriented, Awake and Alert, Able to Follow Commands Attention: Intact Ability to Follow Directions: Excellent Head/Neck Control: WFL - Hearing Hearing: Normal Speech Evaluation - Communication Primary Language: SYRIAC Oral Expression Ability: Yes: Moderate Impairment - Speech Production Able to Make Needs Known: Yes: WNL Intelligibility: Yes: WNL - Speech Characteristics Voice Loudness: Normal Voice Pitch: Yes: Normal Voice Phonatory-based Quality: Yes: Normal Speech Pattern: Impaired Speech Clarity: < 100% Nasal Resonance: Normal Articulation: Yes: Precise Dysfluency: Yes: Tonic, Clonic - Language/Auditory Comprehension Follows: Yes: 2 Stage Simple Commands Observation: Able to respond to yes/no queries: Yes, Yes/No Confusion: Yes, Comprehends Conversational Speech: Yes - Language/Verbal Expression Functional Communication Status: Yes: Moderately Impaired Attention: Yes: Intact - Memory/Perception exterminator termite Memory: Yes: WNL Short Term Memory: Yes: WNL - Swallow Evaluation/Bedside Assessment Current Nutritional Intake: NPO Oral Secretions: Yes: WFL Dentition: Yes: Adequate Facial Symmetry on Retraction: Symmetrical Facial Movement: Controlled Against Resistance Opening: Normal Against Resistance Closing: Normal Pucker Lips: Normal Smile: Normal Lingual Movement: Normal, Symmetric Lingual Speed of Movement: Normal Lingual Movement Strgth Against Opposition: Normal Lingual Movement Characteristics: Normal Soft Palate Description: Normal Color, Normal Symmetry Hard Palate Description: Normal Color, Normal Symmetry Velopharyngeal Movement: Normal Laryngeal Elevation: WFL Laryngeal Movement: Able to Palpate Rate of Intake: WFL Bolus Size: WFL Labial Seal: WFL Chewing: WFL Oral Prep Time: WFL A-P Transit: WFL Pocketing: None Timing of Swallow: WFL Coughing/Throat Clear: No Change in Voice: No Recommendations - Speech Evaluation, Impression/Plan Impression: Dysfluent speech production with clonic and tonic blocks at the beginning and middle of sentences. On the initial phonemes and at times in the medial position. Dysfluency persists during repetition tasks, automatic series, singing. Strategies of Airflow technique/gentle articulatory touch unsuccessful at this time. MRI pending. Language intact.Accurate naming/lanquage comprehension/expression. No dysarthria/dysphagia. Prognosis is likely good for recovery of fluency. - Dysphagia Impressions/Plan Swallowing Skills: [facility] Dysphagia Impressions: No Impairment *Silent aspiration: cannot be R/O at bedside - Recommendations Diet Consistency: Regular Medication Administration: Whole with water Liquids: Thin Liquids
--- NOTE | 2017-10-14 11:21 | PN ---
Progress Note (short form) - Note Progress Note: NEUROSURGERY CONSULT DICTATED Pt with h/o obesity, HTN, HLD, myocarditis c/o stuttered/slurred speech since Saturday night. He developed difficulty speaking words but denies any problems with comprehension or word finding. Pt denies any prodromal symptoms,H/A, visual changes seizures, weakness, lightheadedness, dizziness. NO fever/chill. Denies CP, chest tightness or discomfort. PE: AF, VSS General- normal; obese Motor dysphasia, speech comprehension normal CN- intact II-XII; Motor- 5/5 without drift; Sensation- intact LT/vibration; DTR - 1+, toes downgoing Head CT- L centrum semiovale oval hypodensity, no significant mass effect or edema or shift R/o ischemic event vs mass lesion Brain MRI with and without pending Anticonvulsant regimen per neurology Plan d/w pt
--- NOTE | 2017-10-14 12:38 | PN ---
<Rashaun Ramsey - Last Filed: 10/15/17 08:22> Physical Exam: Patient stated that started to stutter yesterday Vital Signs Temperature 98.6 F 10/14/17 18:00 Pulse Rate 86 10/14/17 18:00 Respiratory Rate 18 10/14/17 18:00 Blood Pressure 120/81 10/14/17 18:00 O2 Sat by Pulse Oximetry (%) 98 10/14/17 00:30 CBCD WBC 12.7 K/mm3 (4.0-10.0) H 10/14/17 03:00 RBC 5.50 M/mm3 (4.00-5.60) 10/14/17 03:00 Hgb 14.5 GM/dL (11.7-16.9) 10/14/17 03:00 Hct 42.7 % (35.4-49) 10/14/17 03:00 MCV 77.8 fl (80-96) L 10/14/17 03:00 MCHC 34.0 g/dl (32.0-35.9) 10/14/17 03:00 RDW 13.9 % (11.9-15.9) 10/14/17 03:00 Plt Count 257 K/MM3 (134-434) 10/14/17 03:00 MPV 9.4 fl (7.5-11.1) 10/14/17 03:00 CMP Sodium 139 mmol/L (136-145) 10/14/17 03:00 Potassium 4.0 mmol/L (3.5-5.1) 10/14/17 03:00 Chloride 106 mmol/L (98-107) 10/14/17 03:00 Carbon Dioxide 24 mmol/L (21-32) 10/14/17 03:00 Anion Gap 9 (8-16) 10/14/17 03:00 BUN 13 mg/dL (7-18) 10/14/17 03:00 Creatinine 0.9 mg/dL (0.7-1.3) 10/14/17 03:00 Creat Clearance w eGFR > 60 (>60) 10/13/17 20:45 Random Glucose 95 mg/dL (74-106) 10/14/17 03:00 Calcium 8.7 mg/dL (8.5-10.1) 10/14/17 03:00 Total Bilirubin 0.3 mg/dL (0.2-1.0) D 10/13/17 20:45 AST 33 U/L (15-37) D 10/13/17 20:45 ALT 46 U/L (12-78) D 10/13/17 20:45 Alkaline Phosphatase 60 U/L (45-117) 10/13/17 20:45 Total Protein 7.6 g/dl (6.4-8.2) 10/13/17 20:45 Albumin 4.1 g/dl (3.4-5.0) 10/13/17 20:45 CARDIAC ENZYMES Creatine Kinase 335 IU/L (39-308) H 10/14/17 08:55 Troponin I < 0.02 ng/ml (0.00-0.05) 10/14/17 08:55 Current Medications Generic Name Dose Route Start Last Admin Trade Name Freq PRN Reason Stop Dose Admin Benzocaine/Menthol 1 each 10/14/17 19:02 Cepacol Lozenge - MM PRN PRN SORE THROAT Carvedilol 3.125 mg 10/14/17 10:00 10/14/17 10:21 Coreg - PO 3.125 mg BID DOUGLAS Administration Lisinopril 2.5 mg 10/14/17 10:00 10/14/17 10:21 Prinivil PO 2.5 mg DAILY DOUGLAS Administration Spironolactone 25 mg 10/14/17 10:00 10/14/17 10:21 Aldactone - PO 25 mg DAILY DOUGLAS Administration Home Medications Medication Instructions Recorded Albuterol Sulfate Inhaler - 1 puff IN PRN PRN 08/21/16 [Ventolin HFA Inhaler -] Carvedilol [Coreg -] 3.125 mg PO BID 10/13/17 Spironolactone [Aldactone] 25 mg PO DAILY 10/13/17 Lisinopril 2.5 mg PO DAILY 10/14/17 Will get LP by IR, nPO after midnight, except meds. need tp r/o MS, oligo bands , lyme, vdrl, agreed for HIV test , edgardo get ID to evaluate the patient as well. <Reid Calhoun - Last Filed: 10/21/17 21:34> Physical Exam: SUBJECTIVE: No significant medical history; started to stutter yesterday and noticed trouble with words. Denies any visual loss, weakness, headaches, blurry vision, changes in understanding of conversation, trouble swallowing, SOB, CP/discomfort , palpitations, abdominal pain, fevers and chills, diarrhea. OBJECTIVE: Vital Signs Period Temp Pulse Resp BP Sys/Walker Pulse Ox Last 24 Hr 98.4 F-99 F 79-90 15-19 111-148/66-94 97-100 GENERAL: NAD, awake, alert, and fully oriented HEENT: NC/AT, EOMI, DHEERAJ, sclera anicteric, moist mucosa Neck: Soft, no lymphadenopathy, no thyromegaly LUNGS: CTA bilaterally, no wheezes, no crackles, no accessory muscle use. HEART: RRR, S1, S2 without murmur ABDOMEN: Soft, NT/ND, normoactive bowel sounds, no guarding, no hepatomegaly EXTREMITIES: 2+ DP pulses, well-perfused, no edema. NEUROLOGICAL: L facial droop noted with softening of nasolabial fold, no tongue or uvula deviation, no upper facial palsy. Otherwise all other CN intact. EOMI, no nystagmus noted, strength 5/5 in shoulder shrug, upper extremity flexion/ extensions, lower extremity flexion/extensions, normal sensation intact, normal gait. stuttering noted. understanding of speech normal. PSYCH: Normal mood, normal affect. SKIN: Warm, dry, no rashes or lesions noted Laboratory Results - last 24 hr 10/13/17 10/13/17 10/13/17 20:45 20:45 20:45 WBC 12.6 H RBC 5.63 H Hgb 14.9 Hct 43.9 MCV 77.9 L MCH 26.4 MCHC 33.9 RDW 14.1 Plt Count 275 MPV 9.2 Neutrophils % 64.2 Lymphocytes % 19.8 D Monocytes % 7.7 Eosinophils % 7.7 H Basophils % 0.6 PT with INR 12.50 INR 1.11 Sodium 139 Potassium 3.8 Chloride 103 Carbon Dioxide 27 Anion Gap 9 BUN 13 Creatinine 1.0 D Creat Clearance w eGFR > 60 Random Glucose 105 Hemoglobin A1c % Calcium 8.6 Total Bilirubin 0.3 D AST 33 D ALT 46 D Alkaline Phosphatase 60 Creatine Kinase 445 H Creatine Kinase Index 1.1 CK-MB (CK-2) 4.927 H Troponin I < 0.02 D Total Protein 7.6 Albumin 4.1 Triglycerides 307 H D Cholesterol 181 D Total LDL Cholesterol 127 H D HDL Cholesterol 29 L TSH Urine Color Urine Appearance Urine pH Ur Specific [place] Urine Protein Urine Glucose (UA) Urine Ketones Urine Blood Urine Nitrite Urine Bilirubin Urine Urobilinogen Ur Leukocyte Esterase Urine WBC (Auto) Urine RBC (Auto) Ur Epithelial Cells Urine Mucus Blood Type Antibody Screen 10/13/17 10/14/17 10/14/17 20:45 00:02 03:00 WBC RBC Hgb Hct MCV MCH MCHC RDW Plt Count MPV Neutrophils % Lymphocytes % Monocytes % Eosinophils % Basophils % PT with INR INR Sodium Potassium Chloride Carbon Dioxide Anion Gap BUN Creatinine Creat Clearance w eGFR Random Glucose Hemoglobin A1c % Calcium Total Bilirubin AST ALT Alkaline Phosphatase Creatine Kinase 353 H Creatine Kinase Index 1.1 CK-MB (CK-2) 4.186 H Troponin I < 0.02 Total Protein Albumin Triglycerides Cholesterol Total LDL Cholesterol HDL Cholesterol TSH Urine Color Ltyellow Urine Appearance Clear Urine pH 5.0 Ur Specific [place] 1.017 Urine Protein Negative Urine Glucose (UA) Negative Urine Ketones Negative Urine Blood 2+ H Urine Nitrite Negative Urine Bilirubin Negative Urine Urobilinogen Negative Ur Leukocyte Esterase Negative Urine WBC (Auto) 1 Urine RBC (Auto) 2 Ur Epithelial Cells Rare Urine Mucus Rare Blood Type A POSITIVE Antibody Screen Negative 10/14/17 10/14/17 10/14/17 03:00 03:00 03:00 WBC 12.7 H RBC 5.50 Hgb 14.5 Hct 42.7 MCV 77.8 L MCH 26.5 MCHC 34.0 RDW 13.9 Plt Count 257 MPV 9.4 Neutrophils % 59.7 Lymphocytes % 23.9 D Monocytes % 6.9 Eosinophils % 8.6 H Basophils % 0.9 PT with INR INR Sodium 139 Potassium 4.0 Chloride 106 Carbon Dioxide 24 Anion Gap 9 BUN 13 Creatinine 0.9 Creat Clearance w eGFR Random Glucose 95 Hemoglobin A1c % 5.8 Calcium 8.7 Total Bilirubin AST ALT Alkaline Phosphatase Creatine Kinase Creatine Kinase Index CK-MB (CK-2) Troponin I Total Protein Albumin Triglycerides Cholesterol Total LDL Cholesterol HDL Cholesterol TSH 2.37 Urine Color Urine Appearance Urine pH Ur Specific [place] Urine Protein Urine Glucose (UA) Urine Ketones Urine Blood Urine Nitrite Urine Bilirubin Urine Urobilinogen Ur Leukocyte Esterase Urine WBC (Auto) Urine RBC (Auto) Ur Epithelial Cells Urine Mucus Blood Type Antibody Screen 10/14/17 08:55 WBC RBC Hgb Hct MCV MCH MCHC RDW Plt Count MPV Neutrophils % Lymphocytes % Monocytes % Eosinophils % Basophils % PT with INR INR Sodium Potassium Chloride Carbon Dioxide Anion Gap BUN Creatinine Creat Clearance w eGFR Random Glucose Hemoglobin A1c % Calcium Total Bilirubin AST ALT Alkaline Phosphatase Creatine Kinase 335 H Creatine Kinase Index 1.1 CK-MB (CK-2) 3.989 H Troponin I < 0.02 Total Protein Albumin Triglycerides Cholesterol Total LDL Cholesterol HDL Cholesterol TSH Urine Color Urine Appearance Urine pH Ur Specific [place] Urine Protein Urine Glucose (UA) Urine Ketones Urine Blood Urine Nitrite Urine Bilirubin Urine Urobilinogen Ur Leukocyte Esterase Urine WBC (Auto) Urine RBC (Auto) Ur Epithelial Cells Urine Mucus Blood Type Antibody Screen Active Medications Generic Name Dose Route Start Last Admin Trade Name Freq PRN Reason Stop Dose Admin Carvedilol 3.125 mg 10/14/17 10:00 10/14/17 10:21 Coreg - PO 3.125 mg BID DOUGLAS Administration Lisinopril 2.5 mg 10/14/17 10:00 10/14/17 10:21 Prinivil PO 2.5 mg DAILY DOUGLAS Administration Spironolactone 25 mg 10/14/17 10:00 10/14/17 10:21 Aldactone - PO 25 mg DAILY DOUGLAS Administration ASSESSMENT/PLAN: 1) Deep L fronto-parietal lesions --As seen on MRI --US-guided lumbar puncture to be performed by IR --NPO after midnight --Hold Heparin --r/o MS vs. infectious --CSF cell count/glucose/total protein/myelin basic protein/Lyme PCR and IGG/culture and gram stain/VDRL --Neurosurgery on board: Dr. Allen --Neurology on board: Dr. Michel --ID consulted --HIV 4th gen to be ordered --Possibility of adding seizure prophylaxis? FEN: Fluids - none currently tolerating PO Electrolyte abnormalities: Nutrition: Low cholesterol and fat diet PPX: DVT - Heparin SQ (restart after LP) GI - None indicated Dispo: LP then continue monitoring Case discussed with Dr. Ramsey and Dr. Alejandro Calhoun, DO - IM PGY-1 Visit type - Emergency Visit Emergency Visit: No - New Patient This patient is new to me today: No - Critical Care Critical Care patient: No
--- NOTE | 2017-10-14 13:14 | CONS ---
DATE OF CONSULTATION: 10/14/2017 PREOPERATIVE DIAGNOSIS: Left frontal white matter disease, rule out ischemia versus neoplasm. HISTORY OF PRESENT ILLNESS: The patient is a 32-year-old right-handed male with a history of hypertension, hypercholesterolemia, obesity, and myocarditis who presents with a 1-1/2-day history of motor speech disturbance since Saturday late evening. He was in his usual state of health until that evening when he developed severe difficulty pronouncing and bringing out words. He had no problems with comprehension. It had made him somewhat frustrated. He denies any headache. He had no nausea or vomiting but did have 1 episode of nausea earlier today. He has no fever or chills. There were no visual changes, weakness, or numbness of his extremities. He had no witnessed seizure activity. PAST MEDICAL HISTORY: Significant for myocarditis, cardiac catheterization, hypertension, hypercholesterolemia, obesity. CURRENT MEDICATIONS: Include Prinivil, Coreg, and Aldactone. ALLERGIES: There is no drug allergies. FAMILY HISTORY: Noncontributory except for his father who had 2 strokes at the age of 50. SOCIAL HISTORY: He is a student studying respiratory therapy currently. He does not smoke and only drinks alcohol socially. He lives at home. REVIEW OF SYSTEMS: Otherwise negative for other major constitutional, head, neck, cardiovascular, pulmonary, gastrointestinal, genitourinary, endocrinologic, neurologic, or psychological problems except for the above. PHYSICAL EXAMINATION: Vital Signs: Temperature 98.8, blood pressure 148/94, pulse rate 80, O2 saturation 98% on room air. HEENT: Shows him to be normocephalic, atraumatic, anicteric. Neck: Supple with no carotid bruits. Coronary: Demonstrates regular rhythm. Lungs: Clear bilaterally. Abdomen: Obese but benign. Extremities: Shows no obvious signs of DVT. Distal pulses are 1+. Neurologic: He is awake, alert, and oriented x4. His memory appears to be intact. He has motor dysphasia but no receptive aphasia. Cranial nerve examination is intact 2-12. Motor examination shows 5/5 strength without drift. Sensory examination is intact to light touch and vibratory sensation. Deep tendon reflexes are 1+ throughout. There is no pathological or long-tract sign. Gait is normal. Cerebellar examination demonstrates intact [id number] examination. LABORATORY EXAMINATION: Shows white blood cell count 12.7, hemoglobin 10.5, platelets 250,000, INR 1.11. Serum sodium 139, potassium 4, BUN 13, creatinine 0.9, hemoglobin A1C 5.8. Troponin less than 0.02. Urinalysis shows 1 WBC and 2 RBC with 2+ blood. Leukocyte esterase negative. CT scan of the head demonstrated an oval-shaped left frontal centrum semiovale hypodense lesion approximately 2.5 x 2 cm. There is no associated calcification. There is no significant associated mass affect or edema. There is no hydrocephalus. Carotid Doppler study shows mild intimal thickening and minimal plaque of the left common carotid artery bifurcation. IMPRESSION: 1. Left frontal white matter hypodensity, rule out ischemic disease rule out neoplasm. 2. Hypertension, history of myocarditis. 3. Hypercholesterolemia. 4. Obesity. RECOMMENDATIONS: The patient presents with a 1-1/2-day history of sudden onset motor dysphasia. He has no weakness or visual changes. There were no witnessed seizure activities. He has no other sign of infection nor any recent infections. Given the sudden onset of symptoms, this appears to be vascular, even though neoplasm, especially given the CT scan appearance, could not be ruled out. The distant history of mycarditis may or may not increase risks of septic emboli. An MRI of the brain with and without gadolinium is being done as we speak. Further recommendations can be made upon availability of the MRI studies. If it is neoplasm, both corticosteroid and anticonvulsant should be considered. The above was discussed with patient in front of the MRI scanner. All questions were answered. MUKUND PINTO M.D. SHAHID/[id number] MTDD
[2017-10-14] MEDS ORDERED: BENZOCAINE/MENTH/CETYLPYRD CL 1 EACH LOZENGE MM PRN (19:02)
[2017-10-14 21:05] VITALS: BMI 41.2
[2017-10-15 06:59] LABS: BASO % 0.4 % (0-2.0); EOS % 6.2 % (0-4.5); HEMATOCRIT 44.3 % (35.4-49); LYMPH % 12.6 % (8-40); MCH 26.4 pg (25.7-33.7); MCHC 33.8 g/dl (32.0-35.9); MEAN CELL VOLUME 78.1 fl (80-96); MEAN PLT VOLUME 9.5 fl (7.5-11.1); MONO % 7.4 % (3.8-10.2); NEUT % 73.4 % (42.8-82.8); PLATELET COUNT 252 K/MM3 (134-434); RBC 5.67 M/mm3 (4.00-5.60); WHITE BLOOD COUNT 12.5 K/mm3 (4.0-10.0)
[2017-10-15 07:14] LABS: INR 1.12 (0.82-1.09); PROTHROMBIN TIME (PATIENT) 12.7 SEC (9.7-13.0)
[2017-10-15 07:16] LABS: ACTIVATED PTT 29.8 SECONDS (26.9-34.4)
[2017-10-15 07:33] LABS: CHLORIDE 101 mmol/L (98-107); POTASSIUM 4.1 mmol/L (3.5-5.1); SODIUM 137 mmol/L (136-145)
[2017-10-15 07:50] LABS: ANION GAP 10 (8-16); BLOOD UREA NITROGEN 11 mg/dL (7-18); CALCIUM 8.7 mg/dL (8.5-10.1); CO2 26 mmol/L (21-32); CREATININE 0.9 mg/dL (0.7-1.3); GLUCOSE,RANDOM 87 mg/dL (74-106)
--- NOTE | 2017-10-15 08:00 | PN ---
Progress Note (short form) - Note Progress Note: NEUROSURGERY Care d/w hospitalist team and Dr Michel Pt denies recent infection, fever, chill, travel Stated that cardiac episode was last year PE: AF, VSS General- normal; obese Motor dysphasia, speech comprehension normal CN- intact II-XII; Motor- 5/5 without drift; Sensation- intact LT/vibration; DTR - 1+, toes downgoing WBC 12.[address]- L centrum semiovale oval hypodensity, no significant mass effect or edema or shift MRI- rim enhancing L fronto-parietal junction white matter 2.2 cm diameter lesion with minimal edema/mass effect; multiple other miguelangel-atrial /occipital white matter cystic smaller non-enhancing lesions R/o inflammatory disease > neoplastic/septic emboli, though the overall MRI appearance is not typical for one diagnosis alone Blood culture x2 HIV pending For LP for CSF sampling (MS, Lyme's, cytology, VDRL, routine studies) Consider cardiology input Plan d/w pt
--- NOTE | 2017-10-15 08:16 | PN ---
Teaching Attending Note Name of Resident: Reid Calhoun ATTENDING PHYSICIAN STATEMENT I saw and evaluated the patient. I reviewed the resident's note and discussed the case with the resident. I agree with the resident's findings and plan as documented. SUBJECTIVE: Patient has no change with his status, c/o having headache. s/p LP today. Patient presented with stuttering speech. OBJECTIVE: Vital Signs Temperature 99 F 10/15/17 06:00 Pulse Rate 92 H 10/15/17 06:00 Respiratory Rate 18 10/15/17 06:00 Blood Pressure 120/80 10/15/17 06:00 O2 Sat by Pulse Oximetry (%) 95 10/14/17 21:00 GENERAL: The patient is awake, alert, and fully oriented, in no acute distress. c/o Headache HEAD: Normal with no signs of trauma. EYES: PERRL, extraocular movements intact, sclera anicteric, conjunctiva clear. ENT: Ears normal, oropharynx clear without exudates, moist mucous membranes. NECK: Trachea midline, full range of motion, supple. LUNGS: Breath sounds equal, clear to auscultation bilaterally, no wheezes, no crackles, no accessory muscle use. HEART: Regular rate and rhythm, S1, S2 without murmur, rub or gallop. ABDOMEN: Soft, nontender, nondistended, normoactive bowel sounds, no guarding, no rebound, no hepatosplenomegaly, no masses. EXTREMITIES: 2+ pulses, warm, well-perfused, no edema. NEUROLOGICAL: Cranial nerves II through XII grossly intact. Normal speech, gait not observed. PSYCH: Normal mood, normal affect. SKIN: Warm, dry, normal turgor, no rashes or lesions noted CBCD WBC 12.7 K/mm3 (4.0-10.0) H 10/14/17 03:00 RBC 5.50 M/mm3 (4.00-5.60) 10/14/17 03:00 Hgb 14.5 GM/dL (11.7-16.9) 10/14/17 03:00 Hct 42.7 % (35.4-49) 10/14/17 03:00 MCV 77.8 fl (80-96) L 10/14/17 03:00 MCHC 34.0 g/dl (32.0-35.9) 10/14/17 03:00 RDW 13.9 % (11.9-15.9) 10/14/17 03:00 Plt Count 257 K/MM3 (134-434) 10/14/17 03:00 MPV 9.4 fl (7.5-11.1) 10/14/17 03:00 CMP Sodium 137 mmol/L (136-145) 10/15/17 06:35 Potassium 4.1 mmol/L (3.5-5.1) 10/15/17 06:35 Chloride 101 mmol/L (98-107) 10/15/17 06:35 Carbon Dioxide 26 mmol/L (21-32) 10/15/17 06:35 Anion Gap 10 (8-16) 10/15/17 06:35 BUN 11 mg/dL (7-18) 10/15/17 06:35 Creatinine 0.9 mg/dL (0.7-1.3) 10/15/17 06:35 Creat Clearance w eGFR > 60 (>60) 10/13/17 20:45 Random Glucose 87 mg/dL (74-106) 10/15/17 06:35 Calcium 8.7 mg/dL (8.5-10.1) 10/15/17 06:35 Total Bilirubin 0.3 mg/dL (0.2-1.0) D 10/13/17 20:45 AST 33 U/L (15-37) D 10/13/17 20:45 ALT 46 U/L (12-78) D 10/13/17 20:45 Alkaline Phosphatase 60 U/L (45-117) 10/13/17 20:45 Total Protein 7.6 g/dl (6.4-8.2) 10/13/17 20:45 Albumin 4.1 g/dl (3.4-5.0) 10/13/17 20:45 CARDIAC ENZYMES Creatine Kinase 335 IU/L (39-308) H 10/14/17 08:55 Troponin I < 0.02 ng/ml (0.00-0.05) 10/14/17 08:55 Current Medications Generic Name Dose Route Start Last Admin Trade Name Freq PRN Reason Stop Dose Admin Benzocaine/Menthol 1 each 10/14/17 19:02 10/14/17 20:36 Cepacol Lozenge - MM 1 each PRN PRN Administration SORE THROAT Carvedilol 3.125 mg 10/14/17 10:00 10/14/17 21:32 Coreg - PO 3.125 mg BID DOUGLAS Administration Lisinopril 2.5 mg 10/14/17 10:00 10/14/17 10:21 Prinivil PO 2.5 mg DAILY DOUGLAS Administration Spironolactone 25 mg 10/14/17 10:00 10/14/17 10:21 Aldactone - PO 25 mg DAILY DOUGLAS Administration Home Medications Medication Instructions Recorded Albuterol Sulfate Inhaler - 1 puff IN PRN PRN 08/21/16 [Ventolin HFA Inhaler -] Carvedilol [Coreg -] 3.125 mg PO BID 10/13/17 Spironolactone [Aldactone] 25 mg PO DAILY 10/13/17 Lisinopril 2.5 mg PO DAILY 10/14/17 PE: AF, VSS General- normal; obese Motor dysphasia, speech comprehension normal CN- intact II-XII; Motor- 5/5 without drift; Sensation- intact LT/vibration; DTR - 1+, toes downgoing Brain MRI reviewed. 2 cm thick regular rim enhancing lesion with minimal mass effect/edema; smaller posterior periventricular cystic non-enhancing lesions. Head CT- L centrum semiovale oval hypodensity, no significant mass effect or edema or shift ASSESSMENT AND PLAN: Pt is a 32yo male with h/o obesity, HTN, HLD, myocarditis presented with stuttering and slurred speech since Saturday night. # Rim enhancing lesion 2cm Deep left fronto-parietal lesion on Brain MRI: s/p LP ,to r/o demyelinating disease vs Lyme's. can't r/o neoplasm/Lymphoma. HIV ordered, pending result ordered LP , lyme, toxo,cysto, Routine csf ordered, please follow. Anticonvulsant regimen per neurology , Neurosx is on the case, Id on the case for further investigation to r/o infectious vs MS or demyelinating dz, Oligoclonal band was ordered as well. Patient agreed for HIV testing, asked when the girlfriend was not around, stated that he has been with the same girlfriend for a year. # Slight elevation of CK ,will start hydration NS at 100cc/hr x 2 liter DVT Px: Heparin restart post LP follow the result, possible transfer to tertiary center. as per family request.
--- NOTE | 2017-10-15 09:17 | PN ---
Physical Exam: SUBJECTIVE: Pt awaiting lumbar puncture today. Pt reports only change in health to have a dry, sore throat yesterday and some headache today. Denies any changes in motor verbal dysfunction, changes in sensorium, changes in strength. OBJECTIVE: Vital Signs Period Temp Pulse Resp BP Sys/Walker Pulse Ox Last 24 Hr 98.5 F-99.2 F 82-98 18-18 108-134/62-88 95 GENERAL: NAD, awake, alert, and fully oriented HEENT: NC/AT, EOMI, DHEERAJ, sclera anicteric, moist mucosa Neck: Soft, no lymphadenopathy, no thyromegaly LUNGS: CTA bilaterally, no wheezes, no crackles, no accessory muscle use. HEART: RRR, S1, S2 without murmur ABDOMEN: Soft, NT/ND, normoactive bowel sounds, no guarding, no hepatomegaly EXTREMITIES: 2+ DP pulses, well-perfused, no edema. NEUROLOGICAL: L facial droop noted with softening of nasolabial fold, no tongue or uvula deviation, no upper facial palsy. Otherwise all other CN intact. EOMI, no nystagmus noted, strength 5/5 in shoulder shrug, upper extremity flexion/ extensions, lower extremity flexion/extensions, normal sensation intact, normal gait. stuttering noted. understanding of speech normal. PSYCH: Normal mood, normal affect. SKIN: Warm, dry, no rashes or lesions noted Laboratory Results - last 24 hr 10/14/17 10/15/17 10/15/17 08:55 06:35 06:35 WBC 12.5 H RBC 5.67 H Hgb 15.0 Hct 44.3 MCV 78.1 L MCH 26.4 MCHC 33.8 RDW 14.0 Plt Count 252 MPV 9.5 Neutrophils % 73.4 D Lymphocytes % 12.6 D Monocytes % 7.4 Eosinophils % 6.2 H Basophils % 0.4 PT with INR 12.70 INR 1.12 PTT (Actin FS) 29.8 Sodium Potassium Chloride Carbon Dioxide Anion Gap BUN Creatinine Random Glucose Calcium Creatine Kinase 335 H Creatine Kinase Index 1.1 CK-MB (CK-2) 3.989 H Troponin I < 0.02 10/15/17 06:35 WBC RBC Hgb Hct MCV MCH MCHC RDW Plt Count MPV Neutrophils % Lymphocytes % Monocytes % Eosinophils % Basophils % PT with INR INR PTT (Actin FS) Sodium 137 Potassium 4.1 Chloride 101 Carbon Dioxide 26 Anion Gap 10 BUN 11 Creatinine 0.9 Random Glucose 87 Calcium 8.7 Creatine Kinase Creatine Kinase Index CK-MB (CK-2) Troponin I Active Medications Generic Name Dose Route Start Last Admin Trade Name Freq PRN Reason Stop Dose Admin Benzocaine/Menthol 1 each 10/14/17 19:02 10/14/17 20:36 Cepacol Lozenge - MM 1 each PRN PRN Administration SORE THROAT Carvedilol 3.125 mg 10/14/17 10:00 10/14/17 21:32 Coreg - PO 3.125 mg BID DOUGLAS Administration Lisinopril 2.5 mg 10/14/17 10:00 10/14/17 10:21 Prinivil PO 2.5 mg DAILY DOUGLAS Administration Spironolactone 25 mg 10/14/17 10:00 10/14/17 10:21 Aldactone - PO 25 mg DAILY DOUGLAS Administration ASSESSMENT/PLAN: 1) Deep L fronto-parietal lesions --As seen on MRI --r/o infectious vs. demyleinating syndrome vs. neoplasm --Neurosurgery on board: Dr. Allen --Neurology on board: Dr. Michel --ID on board due to possible infectious cause --Lumbar puncture to be performed today --CSF cell count/glucose/total protein/myelin basic protein/Lyme PCR and IGG/culture and gram stain/VDRL --HIV 4th gen reflex pending --Keppra 500mg BID for seizure prophylaxis --Elevated CK with low MCV for higher suspicion of neurocysticercosis?? FEN: Fluids - none currently tolerating PO Electrolyte abnormalities: Nutrition: Low cholesterol and fat diet PPX: DVT - Heparin SQ (restart after LP) GI - None indicated Dispo: LP then continue monitoring Case discussed with Dr. Ramsey and Dr. Alejandro Calhoun, DO - IM PGY-1 Visit type - Emergency Visit Emergency Visit: No - New Patient This patient is new to me today: No - Critical Care Critical Care patient: No
[2017-10-15] MEDS ORDERED: SODIUM CHLORIDE 1,000 ML IV SCH (09:30)
--- NOTE | 2017-10-15 10:03 | CON.ID ---
Consult Consult Specialty:: Infectious disease Referred by:: Dr. Ramsey Reason for Consultation:: Brain lesion - History of Present Illness Chief Complaint: Stuttered/slurred speech History of Present Illness: The patient is a 32 yo [place] born m w/ PMH HTN, HLD, Myocarditis, morbid obesity who came into the ED c/o slurred and stuttered speech. Patient lives at home with his girlfriend and parents. Patient has one dog in good health. No travel in the last 2 years. Patient has not had exposure to raw food, but did eat sushi approx. 2 weeks ago. 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 Patient has been rotating through a hospital for this. Patient denies fevers, chills, abdominal pain, diarrhea, dysuria, weight change, night sweats. Patient had a negative PPD prior to starting his hospital rotations 2 months ago. No history of HIV or STI in the past. CT performed in the ED showed a 2.7 cm mass vs infarct in the left cortex w/o evidence of hemorrhage. Follow up MRI showed multiple lesions in the cerebellum and the cortex, with the largest having an area of T2 enhancement around it. Patient evaluated on day 2 of admission and after he underwent Spinal tap under IR guidance. - History Source History Provided By: Patient, Significant Other Limitations to Obtaining History: No Limitations - Past Medical History Cardio/Vascular: Yes: HTN, Hyperlipdemia, Other (idiopathic myocarditis x2) Pulmonary: Yes: Asthma - Alcohol/Substance Use Hx Alcohol Use: No - Smoking History Smoking history: Never smoked Have you smoked in the past 12 months: No Aproximately how many cigarettes per day: 0 - Social History ADL: Independent Occupation: Resp tx student Home Medications - Allergies Allergies/Adverse Reactions: Allergies Allergy/AdvReac Type Severity Reaction Status Date / Time No Known Allergies Allergy Verified 10/13/17 18:59 - Home Medications Home Medications: Ambulatory Orders Albuterol Sulfate Inhaler - [Ventolin HFA Inhaler -] 1 puff IN PRN PRN 08/21/16 Carvedilol [Coreg -] 3.125 mg PO BID 10/13/17 Spironolactone [Aldactone] 25 mg PO DAILY 10/13/17 Lisinopril 2.5 mg PO DAILY 10/14/17 Family Disease History - Family Disease History Family Disease History: Other: Grandparent (Stroke), Father (Stroke) Review of Systems - Review of Systems Constitutional: denies: Chills, Diaphoresis, Fever, Lethargy, Weakness Eyes: denies: Blind Spots, Blurred Vision HENT: denies: Mouth Swelling, Nasal Congestion, Throat Pain Neck: denies: Lumps, Swollen Glands, Tenderness Cardiovascular: denies: Chest Pain, Edema, Palpitations Respiratory: denies: Cough, SOB, SOB on Exertion Gastrointestinal: denies: Abdominal Pain, Constipation, Diarrhea, Nausea, Vomiting Genitourinary: denies: Burning, Discharge, Dysuria, Flank Pain Integumentary: denies: Rash Neurological: reports: Change in Speech (difficulty expressing words and stuttering with no change in mentation or thought formation.) Physical Exam Vital Signs: Vital Signs Temperature 99.2 F 10/15/17 08:53 Pulse Rate 98 H 10/15/17 08:53 Respiratory Rate 18 10/15/17 08:53 Blood Pressure 134/88 10/15/17 08:53 O2 Sat by Pulse Oximetry (%) 95 10/14/17 21:00 Constitutional: Yes: Well Nourished, No Distress, Calm HENT: Yes: Atraumatic, Normocephalic. No: Nasal Congestion, Pharyngeal Erythema , Thrush Neck: Yes: Supple, Trachea Midline. No: Lymphadenopathy Cardiovascular: Yes: Regular Rate and Rhythm, S1, S2. No: JVD, Gallop, Murmur, Rub Respiratory: Yes: Regular, CTA Bilaterally Gastrointestinal: Yes: Normal Bowel Sounds, Soft Neurological: Yes: Alert, Oriented, Aphasia (patient delayed in his response with frequent stuttering and slowed speech.) Psychiatric: Yes: Alert, Oriented Labs: CBC, BMP 10/15/17 06:35 10/15/17 06:35 Imaging - Results Chest X-ray: Report Reviewed, Image Reviewed Cat Scan: Report Reviewed, Image Reviewed Ultrasound: Report Reviewed MRI: Report Reviewed, Image Reviewed Assessment/Plan The patient is a 32 yo m w/ PMH obesity, Asthma and two episodes of idiopathic myocarditis who comes into the ED c/o slurred and stuttering speech, found to have multiple unknown lesions in the brain with one having ring enhancement. Differential diagnosis includes neurocytercosis, Toxoplasmosis, [employer]EW[employer] PLANT OPERATOR lymphoma, HIV and immunocompromised related WASTEW[employer] OPERATOR lesions. -MRI Images read in detail with radiology; unlikely to be a vasculitis or bacterial abscess -Will send additional serology: Quantiferon, ESR, CRP, LDH, RPR -Will send stool for ova and parasites -f/u CSF studies, immunology and cultures -f/u rpt blood cultures -f/u HIV test will follow case d/w Dr. Espinoza
--- NOTE | 2017-10-15 10:07 | PN ---
Progress Note (short form) - Note Progress Note: Neurology HISTORY OF PRESENT ILLNESS: 32yo man with PMH of morbid obesity, HTN, HLD, myocarditis who presents with stuttered/slurred speech since night prior to admission. Patient was at [facility] [place] around 9PM night before admission and developed difficulty with pronouncing words, which has never occurred before. He denied any problems with comprehension or word finding, and only has difficulty producing the words and was visibly stuttering. He denied any prodromal symptoms including seizures, weakness, lightheadedness, dizziness, SEXTON, changes in vision/taste/smell. Denies any CP, chest tightness or discomfort. No sob, fever, chills, URI symtpoms, abdominal pain, or urinary symptoms. Head CT completed and reported with Left basal ganglia region, circular appearing, 2.7 cm mass vs infarct; no e/o hemorrhage or surrounding edema. Carotid doppler also reviewed and without HD significant stenosis. Patient anxious regarding diagnosis and would like imaging completed. MRI brain revieweded images and report, 2 cm rim enhancing lesion with minimal mass effect/edema of L basal ganglia region along with smaller posterior periventricular cystic non-enhancing lesions. Does not appear to infarct. Largest lesion deep L fronto-parietal.. There was concern for neoplasm as well as possible demylinating condition mentioned. LP ordered, added Oligoclonal bands as well as Myelin based protein. Patient likely to need biopsy. Should also consider Toxo, neurocysticercosis and UNIFORM CAP OPERATOR lymphoma in differentia. Mentioned to primary team attending. Active Medications Benzocaine/Menthol (Cepacol Lozenge -) 1 each MM PRN PRN PRN Reason: SORE THROAT Last Admin: 10/14/17 20:36 Dose: 1 each Carvedilol (Coreg -) 3.125 mg PO BID [facility] Last Admin: 10/14/17 21:32 Dose: 3.125 mg Sodium Chloride (Normal Saline -) 1,000 mls @ 100 mls/hr IV ASDIR [facility] Stop: 10/16/17 19:29 Levetiracetam (Keppra -) 500 mg PO BID [facility] Lisinopril (Prinivil) 2.5 mg PO DAILY [facility] Last Admin: 10/14/17 10:21 Dose: 2.5 mg Spironolactone (Aldactone -) 25 mg PO DAILY [facility] Last Admin: 10/14/17 10:21 Dose: 25 mg PHYSICAL EXAMINATION Vital Signs Period Temp Pulse Resp BP Sys/Walker Pulse Ox Last 24 Hr 98.5 F-99.2 F 82-98 18-18 108-134/62-88 95 GENERAL: Awake, alert, and fully oriented, in no acute distress. HEAD: Normal with no signs of trauma. EYES: PERRLA, EOMI, sclera anicteric, conjunctiva clear EARS, NOSE, THROAT: Oropharynx clear without exudates. Moist mucous membranes. NECK: supple, no cervical LAD LUNGS: CTAB HEART: rrr, normal s1/s2, no m/r/g ABDOMEN: soft, obese, NTND UPPER EXTREMITIES: 2+ radial pulses, wwp, no edema LOWER EXTREMITIES: 2+ DP pulses, warm, wwp, no calf tenderness, no edema NEUROLOGICAL: Cranial nerves II-XII intact except mild L facial droop, speech intelligble, but stuttered. Normal gait without ataxia. No pronator drift, no dymetria or dysdiachokinesia. Motor Strength 5/5 in upper and lower extremities ; Sensation to light touch intact in distal upper and lower extremities. PSYCHIATRIC: Cooperative. Good eye contact. Appropriate mood and affect. CBCD WBC 12.5 K/mm3 (4.0-10.0) H 10/15/17 06:35 RBC 5.67 M/mm3 (4.00-5.60) H 10/15/17 06:35 Hgb 15.0 GM/dL (11.7-16.9) 10/15/17 06:35 Hct 44.3 % (35.4-49) 10/15/17 06:35 MCV 78.1 fl (80-96) L 10/15/17 06:35 MCHC 33.8 g/dl (32.0-35.9) 10/15/17 06:35 RDW 14.0 % (11.9-15.9) 10/15/17 06:35 Plt Count 252 K/MM3 (134-434) 10/15/17 06:35 MPV 9.5 fl (7.5-11.1) 10/15/17 06:35 CMP Sodium 137 mmol/L (136-145) 10/15/17 06:35 Potassium 4.1 mmol/L (3.5-5.1) 10/15/17 06:35 Chloride 101 mmol/L (98-107) 10/15/17 06:35 Carbon Dioxide 26 mmol/L (21-32) 10/15/17 06:35 Anion Gap 10 (8-16) 10/15/17 06:35 BUN 11 mg/dL (7-18) 10/15/17 06:35 Creatinine 0.9 mg/dL (0.7-1.3) 10/15/17 06:35 Creat Clearance w eGFR > 60 (>60) 10/13/17 20:45 Calcium 8.7 mg/dL (8.5-10.1) 10/15/17 06:35 Total Bilirubin 0.3 mg/dL (0.2-1.0) D 10/13/17 20:45 AST 33 U/L (15-37) D 10/13/17 20:45 ALT 46 U/L (12-78) D 10/13/17 20:45 Alkaline Phosphatase 60 U/L (45-117) 10/13/17 20:45 Total Protein 7.6 g/dl (6.4-8.2) 10/13/17 20:45 Albumin 4.1 g/dl (3.4-5.0) 10/13/17 20:[address] Focal low attenuation in the white matter of the LEFT centrum and extending partially into the area of the posterior limb of the external capsule and external capsular areas. This also partially involves the thalamus and adjacent basal ganglia. This measures up to 2.7 cm in greatest dimension. This is a nonspecific finding. The differential diagnosis includes ischemia and mass. Followup with MRI with enhancement should be obtained. No evidence of intracranial hemorrhage or mass. Carotid Doppler without HD significant stenosis MRI Brain: Reviewed, as above PLAN: 32yo man with PMH of morbid obesity, HTN, HLD, myocarditis who presents with stuttered/slurred speech since night prior to admission. Patient was at [facility] [place] around 9PM night before admission and developed difficulty with pronouncing words, which has never occurred before. He denied any problems with comprehension or word finding, and only has difficulty producing the words and was visibly stuttering. He denied any prodromal symptoms including seizures, weakness, lightheadedness, dizziness, SEXTON, changes in vision/taste/smell. Denies any CP, chest tightness or discomfort. No sob, fever, chills, URI symtpoms, abdominal pain, or urinary symptoms. Head CT completed and reported with Left basal ganglia region, circular appearing, 2.7 cm mass vs infarct; no e/o hemorrhage or surrounding edema. 2 cm rim enhancing lesion with minimal mass effect/edema of L basal ganglia region along with smaller posterior periventricular cystic non-enhancing lesions. Does not appear to infarct. Largest lesion deep L fronto-parietal.. There was concern for neoplasm as well as possible demylinating condition mentioned. LP ordered, added Oligoclonal bands as well as Myelin based protein. Patient likely to need biopsy. Should also consider Toxo, neurocysticercosis and UNIFORM CAP OPERATOR lymphoma in differentia. Mentioned to primary team. NSGY note reviewed, consider steroids such as decadron if indicated. Started patient on Keppra 500mg twice daily. Monitor HTN , maintain normotensive range, on lisinopril 2.5mg QD, Spironolactone 25mg QD, Coreg 3.125mg BID. Continue Statin for hyperlipidemia. DVT ppx.
[2017-10-15] MEDS ORDERED: PT OWN MED DRAWER 7, Y5N ONE ×3 (10:42→20:13)
[2017-10-15] MEDS: levETIRAcetam 500 MG TABLET (FP) PO SCH ×2 (11:13→21:25)
[2017-10-15] MEDS: SPIRONOLACTONE 25 MG TABLET (FP) PO SCH (11:13)
[2017-10-15] MEDS: LISINOPRIL 5 MG TABLET (FP) PO SCH (11:13)
[2017-10-15] MEDS: CARVEDILOL 3.125 MG TABLET (FP) PO SCH ×2 (11:13→21:25)
[2017-10-15] MEDS ORDERED: ACETAMINOPHEN 325 MG TABLET (FP) PO PRN ×2 (11:28→16:48)
--- NOTE | 2017-10-15 12:47 | PN ---
Progress Note, [employer]SP[employer] SUPER[employer]OR - Note Progress Note: Selected Entries 10/14/17 10/14/17 10/14/17 00:30 06:00 14:39 Breakfast Temperature 98.4 F 98.8 F 98.5 F 10/14/17 10/14/17 10/15/17 18:00 21:00 02:00 Breakfast Temperature 98.6 F 98.5 F 98.5 F 10/15/17 10/15/17 10/15/17 06:00 08:53 10:34 Breakfast 100% Temperature 99 F 99.2 F Laboratory Tests 10/13/17 10/14/17 10/15/17 20:45 03:00 06:35 WBC 12.6 H 12.7 H 12.5 H Tolerating diet. Medical events noted. Still with dysfluency of speech on most words with no spontaneous recovery. Pending LP results. Educated pt on gentle articulatory touch with airflow technigue with good affect. Speech drills provided for self practice b/n sessions. Advised pt to schedule out pt speech tx now to follow once discharged.
--- NOTE | 2017-10-15 13:22 | PN ---
Teaching Attending Note Name of Resident: Donald Mccoy ATTENDING PHYSICIAN STATEMENT I saw and evaluated the patient. I reviewed the resident's note and discussed the case with the resident. I agree with the resident's findings and plan as documented. SUBJECTIVE: stuttering Saturday night worsened Saturday, came to ED saturday no fevers chills night sweats PPD negative no cough, last dental work in Apr 2017 no IVDU no recent antibiotics, no steroid use, no recent illnesses just returned from LP no visual complaints no diarrhea no travel history born in the [place] pet dog eats sushi occasionally no other food preferences PMH- myocarditis times two no diabetes FH- CVA multiple family members OBJECTIVE:obese young man, NAD Vital Signs Period Temp Pulse Resp BP Sys/Walker Pulse Ox Last 24 Hr 98.5 F-99.2 F 82-98 18-18 108-134/62-88 95-99 cor-rrr lungs clear abd soft,nt ext no edema No palpable peripheral NICK CBC, BMP 10/15/17 06:35 10/15/17 06:35 LFTS normal csf cellcount,protein glucose pending csf culture/gram stain pending blood cultures sent cxray clear CSF imaging reviewed with radiology, unlikely bacterial process ASSESSMENT AND PLAN: load tallier mass- diff dx includes malignancy, inflammatory, infectious- less likely bacterial process- toxo, lymphoma, cystercercosis in differential d/w hospitalist service Dr Sanchez, d/w Dr Allen blood cultures csf studies pending HIV esr/crp toxoplasma pcr csf, ebv pcr csf cystercicercosis serology toxoplasma serology echinococcal serology rpr quantiferon gold consider ct scan chest/abd/pelvis r/o malignancy stool for ova and parasites will hold antibiotics as clinically and radiographically not c/w bacterial abscess and as NS is considering possible biopsy suggest optho consult as well
[2017-10-15 14:08] LABS: GLUCOSE,CSF 63 mg/dL (50-80)
[2017-10-15 14:34] LABS: CSF APPEARANCE CLEAR; CSF COLOR COLORLESS; CSF WBC 6
--- NOTE | 2017-10-15 15:16 | MSN ---
Progress Note (SOAP) - Subjective Chief Complaint: Stuttering speech and lower left facial droop History of Present Illness: Patient is a 32 year old male with past medical hx of obesity, HTN, HLD, and myocarditis x2 who was admitted after stutering speech and lower left sided facial droop that started Saturday night and has not improved. Today the patient is complaining of new onset headache in the occipital region of the patients head on the left. The patient describes the pain as pressure that started this morning and is not made better or worse with any position changes. The patient states that his speech and facial weakness have not changed from previous days. the patient is not having any new focal necrological symptoms, weakness, or parathesia. Review of symptoms is negative for any chest pain, SOB , N/V, change in vision, LOC, abdominal pain, or diarrhea. - Current Medications Current Medications: Active Medications Acetaminophen (Tylenol -) 650 mg PO ONCE PRN PRN Reason: PAIN Stop: 10/15/17 18:00 Last Admin: 10/15/17 12:09 Dose: 650 mg Benzocaine/Menthol (Cepacol Lozenge -) 1 each MM PRN PRN PRN Reason: SORE THROAT Last Admin: 10/14/17 20:36 Dose: 1 each Carvedilol (Coreg -) 3.125 mg PO BID [facility] Last Admin: 10/15/17 11:13 Dose: 3.125 mg Sodium Chloride (Normal Saline -) 1,000 mls @ 100 mls/hr IV ASDIR [facility] Stop: 10/16/17 19:29 Last Admin: 10/15/17 11:11 Dose: 100 mls/hr Levetiracetam (Keppra -) 500 mg PO BID [facility] Last Admin: 10/15/17 11:13 Dose: 500 mg Lisinopril (Prinivil) 2.5 mg PO DAILY [facility] Last Admin: 10/15/17 11:13 Dose: 2.5 mg Spironolactone (Aldactone -) 25 mg PO DAILY [facility] Last Admin: 10/15/17 11:13 Dose: 25 mg - Objective Vital Signs: Vital Signs Temperature 99.2 F 10/15/17 08:53 Pulse Rate 98 H 10/15/17 08:53 Respiratory Rate 18 10/15/17 08:53 Blood Pressure 134/88 10/15/17 08:53 O2 Sat by Pulse Oximetry (%) 99 10/15/17 08:00 Constitutional: Yes: Well Nourished, No Distress, Calm Eyes: Yes: EOM Intact, PERRL. No: Ptosis, Sclera Icterus HENT: Yes: Atraumatic, Normocephalic, Other (left lower facial droop noticed ) Neck: Yes: Supple, Trachea Midline Cardiovascular: Yes: Regular Rate and Rhythm, S1, S2 Respiratory: Yes: CTA Bilaterally Gastrointestinal: Yes: Normal Bowel Sounds, Abdomen, Obese. No: Pulsatile Mass Peripheral Pulses WNL: Yes Peripheral Pulses: Left Doralis Pedis: 2+, Right Dorsalis Pedis: 2+ Edema: No Neurological: Yes: Alert, Oriented, Aphasia, Dysarthria, Facial Droop. 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 # Stuttering Speech and left lower facial droop - secondary to abscess, autoimmune process, neoplasm, opportunistic infection or parasite - MRI shows 2.6 cm lesion in the left posterior frontal lobe at the level of the grant radiata - with white matter lesions also shown in the periventricular and cerebellar regions - echo WNL, EF >60% with normal LV function - Neurologist Dr. Michel, Neurosurgeon Dr. Allen, and ID Dr. Espinoza on board - Started on Kepra 500 mg BID as per nuero for seizure prophylaxis, consider steroids if mass lesion is confirmed - LP ordered with diff, culture, JAE, oligioclonal bands, myelin basic priotine , Crypto antigen, lyme IgM, VLDR, cystircicosis ab, toxoplasmosis ab, and ova/ parasite - HIV Serology negative - if serology and and LP negative for infectious or autoimmune pathology, biopsy will be considered # Headache - secondary to left frontal lobe lesion vs spinal fluid headache from LP - Will start Tylenol PRN # HTN - continue lisinopril 2.5 PO daily - continue carvedilol 3.125 mg PO BID - continue Spironolactone 25mg PO daily # HLD - consider statin as outpatient # Sore throat - continue cepracol lozenge PRN F/E/N - low cholesterol/ Fat diet - ELectrolytes WNL - N/S at 100 mls/hr DVT - restart hepatin SQ after lumbar puncture
[2017-10-15] MEDS ORDERED: IBUPROFEN 600 MG TABLET (FP) PO PRN (16:52)
[2017-10-15] MEDS ORDERED: VANCOMYCIN 2,000 MG in DEXTROSE 5%-WATER - 500 ML IVPB ONE (17:54)
[2017-10-15] MEDS ORDERED: CEFTRIAXONE 2 GM in DEXTROSE 5%-WATER 100 ML IVPB SCH (18:00)
[2017-10-15] MEDS ORDERED: DEXTROSE 5%-WATER 100 ML IVPB ONE (18:19)
[2017-10-16 00:17] VITALS: BP 116/50; PULSE 98; TEMP 99.4
[2017-10-16] MEDS ORDERED: VANCOMYCIN 1,750 MG in DEXTROSE 5%-WATER - 500 ML IVPB SCH (06:00)
[2017-10-18 00:07] LABS: MYELIN BASIC PROTEIN,CSF 5.2 ng/mL (0.0-1.2)
[2017-10-19 06:07] LABS: TOXOPLASMA IGG,CSF < 3.0 IU/mL (.)
[2017-10-23 00:06] LABS: CYSTICERC Ig-G ELISA CSF 0 OD (<=0.34)
== END 2017-10-15 22:30 | disposition short-term general hospital (02) | DRG 58 ==
LOC: JER 18:54 → JERBED 21:58 → J4W 10-14 00:44
PROVIDERS: ADMIT Internal Medicine; ATTEND Internal Medicine
PROC: 009U3ZZ Drainage of Spinal Canal, Percutaneous Approach (ICD-10-PCS; principal; 2017-10-15)
DX: G93.9 Disorder of brain, unspecified (principal); E66.01 Morbid (severe) obesity due to excess calories; Z68.41 Body mass index [BMI] 40.0-44.9, adult; E78.5 Hyperlipidemia, unspecified; J45.909 Unspecified asthma, uncomplicated; I10 Essential (primary) hypertension; R47.01 Aphasia; R51 Headache; J02.9 Acute pharyngitis, unspecified
CPT/HCPCS: 36415; 62272; 70450-TC; 70553-TC; 71046-TC-FY; 76098-TC-FY; 77002-TC-FY; 80048; 80053; 81003; 81015; 82465; 82550; 82553; 82784; 82945; 83036; 83615; 83718; 83721; 83873; 83916; 84157; 84443; 84478; 84484; 85025; 85610; 85651; 85730; 86140; 86480; 86592; 86593; 86617; 86663; 86664; 86665; 86682; 86777; 86850; 86900; 86901; 87040; 87070; 87102; 87116; 87177; 87205; 87206; 87209; 87210; 87389; 87476; 87899; 90732; 93005; 93010; 93306-TC; 93880-TC; 99285-25; C1887; G0009; J7030